=== PATIENT | female | born 1955 | race Caucasian/White ===

== ENCOUNTER 2016-08-05 13:06 | Inpatient (IN) | payer MEDICARE, OTHER ==
[2016-08-05 13:49] LABS: ABSOLUTE LYMPHOCYTES (AUTO) 0.8 10^3/uL (0.5-4.7); ABSOLUTE NEUT (AUTO) 7.8 10^3/uL (1.7-8.2); BASOPHILS % (AUTO) 0.4 % (0-2); HEMATOCRIT 36.7 % (36.0-47.0); HEMOGLOBIN 12.2 g/dL (12.0-15.5); HGB HCT DIFFERENCE -0.1; LYMPHOCYTES % (AUTO) 8.3 % (13-45); MEAN CORPUSCULAR HEMOGLOBIN 30.5 pg (27.0-33.4); MEAN CORPUSCULAR HGB CONC 33.3 g/dL (32.0-36.0); MEAN CORPUSCULAR VOLUME 92 fl (80-97); MONOCYTES % (AUTO) 10.4 % (3-13); RED BLOOD COUNT 4.01 10^6/uL (3.72-5.28); RED CELL DISTRIBUTION WIDTH 13.4 % (11.5-14.0); SEGMENTED NEUTROPHILS % (AUTO) 80.9 % (42-78); WHITE BLOOD COUNT 9.7 10^3/uL (4.0-10.5)
[2016-08-05] MEDS ORDERED: NORMAL SALINE 1000 ML 1,000 ML IV ONE ×3 (13:52→15:52)
[2016-08-05 14:09] LABS: BLOOD UREA NITROGEN 64 mg/dL (7-20); CALCIUM 8.3 mg/dL (8.4-10.2); CARBON DIOXIDE 12 mmol/L (22-30); CHLORIDE 99 mmol/L (98-107); CREATINE KINASE 69 U/L (30-135); CREATININE RESULT 7.62 mg/dL (0.52-1.25); GLUCOSE 165 mg/dL (75-110); POTASSIUM 4.7 mmol/L (3.6-5.0); SODIUM 134.2 mmol/L (137-145)
[2016-08-05 14:13] LABS: ANION GAP 23 (5-19)
--- NOTE | 2016-08-05 14:35 | ER Document Report ---
ED Flu Like - General Chief Complaint: Hypotension Stated Complaint: LOW BLOOD PRESSURE Notes: The patient is a 60-year-old female, current smoker, DM, HTN, CAD, presents with 1 week of subjective fevers, chills and feeling generalized weakness. She has not been drinking or eating much over the past few days. She went to the urgent care center and was diagnosed with influenza A and B. Her blood pressure was 60/20 and she was sent to the emergency room for further evaluation treatment. EMS gave her 1 L fluid NS and her blood pressure improved to 80/50. She is also having decreased urination. She denies nausea, vomiting, chest pain, shortness of breath, leg swelling, hemoptysis, back pain, abdominal pain, dysuria or flank pain. TRAVEL OUTSIDE OF THE [place] IN LAST 30 DAYS: No - Related Data Allergies/Adverse Reactions: No Known Allergies Allergy (Verified 09/16/15 11:39) Past Medical History - General Information source: Patient - Social History Smoking Status: Current Every Day Smoker Chew tobacco use (# tins/day): Yes - 1ppd Frequency of alcohol use: None Drug Abuse: None Family History: Reviewed & Not Pertinent Patient has suicidal ideation: No Patient has homicidal ideation: No - Past Medical History Cardiac Medical History: Reports: Hx Coronary Artery Disease - HIGH CHOL, Hx Hypercholesterolemia Denies: Hx Heart Attack, Hx Hypertension Pulmonary Medical History: Reports: Hx Pneumonia Denies: Hx Asthma, Hx Bronchitis, Hx COPD Neurological Medical History: Denies: Hx Cerebrovascular Accident, Hx Seizures Endocrine Medical History: Reports: Hx Diabetes Mellitus Type 2 Renal/ Medical History: Denies: Hx Peritoneal Dialysis Musculoskeltal Medical History: Reports Hx Arthritis - BACK PAIN Past Surgical History: Reports: Hx Abdominal Surgery - Colostomy, Hx Colostomy. Denies: Hx Hysterectomy - Immunizations Hx Diphtheria, Pertussis, Tetanus Vaccination: No Review of Systems - Review of Systems Notes: REVIEW OF SYSTEMS: CONSTITUTIONAL: +fevers, +chills EENT: -eye pain, -difficulty swallowing, -nasal congestion CARDIOVASCULAR: -chest pain, -syncope. RESPIRATORY: +cough, -SOB GASTROINTESTINAL: -abdominal pain, -nausea, -vomiting, -diarrhea GENITOURINARY: -dysuria, -hematuria MUSCULOSKELETAL: -back pain, -neck pain SKIN: -rash or skin lesions. HEMATOLOGIC: -easy bruising or bleeding. LYMPHATIC: -swollen, enlarged glands. NEUROLOGICAL: -altered mental status or loss of consciousness, -headache, - neurologic symptoms PSYCHIATRIC: -anxiety, -depression. ALL OTHER SYSTEMS REVIEWED AND NEGATIVE. Physical Exam - Vital signs Vitals: Resp 21 H 08/05/16 13:19 - Notes Notes: PHYSICAL EXAMINATION: GENERAL: Ill-appearing. HEAD: Atraumatic, normocephalic. EYES: Pupils equal round and reactive to light, extraocular movements intact, sclera anicteric, conjunctiva are normal. ENT: nares patent, oropharynx clear without exudates. Moist mucous membranes. NECK: Normal range of motion, supple without lymphadenopathy LUNGS: Breath sounds clear to auscultation bilaterally and equal. No wheezes rales or rhonchi. HEART: Regular rate and rhythm without murmurs ABDOMEN: Soft, nontender, normoactive bowel sounds. No guarding, no rebound. No masses appreciated. EXTREMITIES: Normal range of motion, no pitting or edema. No cyanosis. NEUROLOGICAL: Cranial nerves grossly intact. Normal speech, normal gait. Normal sensory, motor, and reflex exams. PSYCH: Normal mood, normal affect. SKIN: Warm, Dry, normal turgor, no rashes or lesions noted. Course - Re-evaluation Re-evalutation: Patient with BETTY. Baseline creatinine normal and is 7.6 today. Will send urinary lytes. Suspect BETTY from dehydration due to decreased po intake. BP improved to 95/60 after 2.5 L NS. Spoke to Dr. Kumar at 15:10 and he has accepted patient as Inpatient to [facility]. - Vital Signs Vital signs: Temp Pulse Resp BP Pulse Ox 97.9 F 78 17 83/60 L 97 08/05/16 13:42 08/05/16 13:42 08/05/16 14:09 08/05/16 14:01 08/05/16 13:42 - Laboratory Result Diagrams: 08/05/16 13:24 08/05/16 13:24 Laboratory results interpreted by me: 08/05/16 08/05/16 13:24 13:24 Seg Neutrophils % 80.9 H Lymphocytes % 8.3 L Sodium 134.2 L Carbon Dioxide 12 L Anion Gap 23 H BUN 64 H Creatinine 7.62 H Est GFR ( Amer) 7 L Est GFR (Non-Af Amer) 5 L Glucose 165 H Calcium 8.3 L - Diagnostic Test Radiology reviewed: Image reviewed, Reports reviewed Radiology results interpreted by me: CXR: NAD - EKG Interpretation by Me EKG shows normal: Sinus rhythm, [place], Intervals, QRS Complexes, ST-T Waves Critical Care Note - Critical Care Note Total time excluding time spent on procedures (mins): 45 Discharge - Discharge Clinical Impression: BETTY (acute kidney injury), Influenza Hypotension Qualifiers: Hypotension type: unspecified hypotension type Qualified Code(s): I95.9 - Hypotension, unspecified Condition: Serious Disposition: ADMITTED INPATIENT Admitting Provider: Hospitalist - José Unit Admitted: [facility]
[2016-08-05] MEDS ORDERED: ACETAMINOPHEN 325 MG TABLET PO ONE (14:58)
[2016-08-05 15:38] LABS: AMORPHOUS SEDIMENT,URINE TRACE /HPF; APPEARANCE,URINE CLOUDY; BILIRUBIN,URINE NEGATIVE (NEGATIVE); GLUCOSE, URINE NEGATIVE (NEGATIVE); KETONES,URINE NEGATIVE (NEGATIVE); LEUKOCYTE ESTERASE,URINE NEGATIVE (NEGATIVE); NITRITE,URINE NEGATIVE (NEGATIVE); PROTEIN,URINE 100 mg/dL (NEGATIVE); URINE SPECIFIC GRAVITY 1.012; UROBILINOGEN,URINE NEGATIVE mg/dL (<2.0)
[2016-08-05] MEDS ORDERED: DEXTROSE 40% GEL 15 GM TUBE PO PRN ×2 (15:47)
[2016-08-05] MEDS ORDERED: GLUCAGON,HUMAN RECOMB 1 MG INJ IM PRN (15:47)
[2016-08-05] MEDS ORDERED: NORMAL SALINE 1000 ML 1,000 ML IV PRN (15:47)
[2016-08-05] MEDS ORDERED: DEXTROSE 50%-WATER 25 GM/50 ML DISP.SYRIN IV PRN ×2 (15:47)
[2016-08-05] MEDS ORDERED: ONDANSETRON HCL INJ/PF 4 MG/2 ML SDV IV PRN (15:52)
[2016-08-05 15:56] LABS: URINE CREATININE 222.9 mg/dL (15-278)
[2016-08-05] MEDS ORDERED: HYDROMORPHONE HCL INJ/PF 2 MG/ML AMPULE IV PRN (16:00)
--- NOTE | 2016-08-05 16:27 | PDOC H&P ---
History of Present Illness Admission Date/PCP: 08/05/16 15:25 Patient complains of: Generalized weakness, fatigue and pain History of Present Illness: NEVILLE JOY is a 60 year old female presents from home with 1 week history of progressive weakness, muscle aches and pains, joint aches and pains, chills. Got to the point where she could barely get herself out of bed, she made her way into urgent care center where she was screened for and found to be positive for both influenza A and B rapid screen. She was noted to be hypotensive with systolic pressures in the 60s, EMS was called and she was transported to the emergency department. Upon arrival here she remained hypotensive until 2 L of normal saline infused getting her mean arterial pressures greater than 65 again. Further evaluation here demonstrates severe ATN induced acute renal failure with a creatinine of greater than 7 up from a baseline of 0.7. For these reasons we were asked to admit the patient for further evaluation and management. Of note she reports a drop off in a volume of her urine and of her stool in her ostomy bag. She has a history of colon cancer status post resection with diverting ostomy and chemotherapy and is followed by oncology but has been declared cancer free. She refused her influenza vaccine this fall. Past Medical History Cardiac Medical History: Reports: Coronary Artery Disease - HIGH CHOL, Hyperlipidema Denies: Myocardial Infarction, Hypertension Pulmonary Medical History: Reports: Pneumonia Denies: Asthma, Bronchitis, Chronic Obstructive Pulmonary Disease (COPD) Neurological Medical History: Denies: Seizures Endocrine Medical History: Reports: Diabetes Mellitus Type 2 Musculoskeltal Medical History: Reports: Arthritis - BACK PAIN Hematology: Denies: Anemia Past Surgical History Past Surgical History: Reports: Colostomy Denies: Hysterectomy Social History Smoking Status: Current Every Day Smoker Cigarettes Packs Per Day: 1 Frequency of Alcohol Use: None Hx Recreational Drug Use: No Hx Prescription Drug Abuse: No - Advance Directive Resuscitation Status: Full Code Family History Family History: Reviewed & Not Pertinent, DM Parental Family History Reviewed: Yes Children Family History Reviewed: Yes Sibling(s) Family History Reviewed.: Yes Medication/Allergy Allergies/Adverse Reactions: No Known Allergies Allergy (Verified 09/16/15 11:39) Review of Systems Constitutional: PRESENT: as per HPI, chills, fatigue, night sweats, weakness. ABSENT: fever(s), headache(s), weight gain, weight loss Eyes: ABSENT: visual disturbances Ears: ABSENT: hearing changes Cardiovascular: PRESENT: dyspnea on exertion. ABSENT: chest pain, edema, orthropnea, palpitations Respiratory: ABSENT: cough, hemoptysis Gastrointestinal: PRESENT: nausea. ABSENT: abdominal pain, constipation, diarrhea, hematemesis, hematochezia, vomiting Genitourinary: PRESENT: as per HPI. ABSENT: dysuria, hematuria Musculoskeletal: ABSENT: joint swelling Integumentary: ABSENT: rash, wounds Neurological: ABSENT: abnormal gait, abnormal speech, confusion, dizziness, focal weakness, syncope Psychiatric: ABSENT: anxiety, depression Endocrine: ABSENT: cold intolerance, heat intolerance, polydipsia, polyuria Hematologic/Lymphatic: ABSENT: easy bleeding, easy bruising Physical Exam Vital Signs: Temp Pulse Resp BP Pulse Ox 97.9 F 78 17 92/46 L 94 08/05/16 13:42 08/05/16 13:42 08/05/16 16:01 08/05/16 16:01 08/05/16 15:21 PHYSICAL EXAM GENERAL: Mild distress; well developed, well nourished; no obese; alert and oriented to person, place, time, situation HEENT: normocephalic, atraumatic; EOMI, no conjunctival injection, no scleral icterus; oral mucosa very dry with thick, heaped up white plaque coating the tongue, portions of the buccal mucosa and posterior oropharynx,; neck supple, no LAD, normal ROM RESPIRATORY: no accessory muscle use, mild increased WOB, good air entry bilaterally coarse bilateral breath sounds; no wheezes, rales, rhonchi; no inspiratory crackles CARDIO: no JVD; RRR; no systolic murmur; no tachycardia, normal sinus rhythm on the monitor with a heart rate in the 80s VASCULAR: no carotid bruit; no abdominal bruit; no pallor; 2+ radial, DP pulse ; normal capillary refill GI: soft; nondistended; normal bowel sounds; no hepato spleno megaly; no rebound, rigidity, guarding; nontender; ostomy bag in place in the right lower quadrant with thin, purplish liquid and some formed elements : normal external genitalia; rectal deferred NEURO: normal patella reflexes; normal sensation; normal motor function; no dysarthria; tongue protrudes midline; MSK: 5/5 strength; normal ROM hips; ambulatory without assistance; no tenderness EXTREMITIES: no calf tender; no palpable cords in calf; no clubbing, cyanosis , pedal edema PSYCH: normal affect, normal mood SKIN: Cool; dry; no petechiae; no telengectasias; no jaundice; no rash Results Laboratory Results: Labs reviewed, chemistry show a sodium of 134, potassium of 5.7, chloride 99, bicarbonate of 12 with an anion gap of 23, BUN of 64, creatinine 7.6. A baseline of 0.7 on review of the medical record, glucose of 165, calcium of 8.3 ; total CK is 69 and troponin is negative, lactic acid is 1.7; CBC shows WBCs at 9.7, H&H 12 and 36, normal platelets and differential shows elevation of segmented neutrophils. Urinalysis shows cloudy yellow urine with a pH of 5 and specific gravity of 1.012, 100 protein, moderate blood, Hylan casts, negative nitrite and leukocyte esterase, trace amount of bacteria. Impressions: Chest X-Ray 08/05/16 13:30 IMPRESSION: NO ACUTE RADIOGRAPHIC FINDING IN THE CHEST. Status: Image reviewed by va - Chest x-ray shows flattening of hemidiaphragms with hyperexpansion of the lung serrato and chronic stranding within the bilateral lung serrato unchanged when compared to prior chest x-ray. Assessment & Plan - Diagnosis (1) Influenza Is this a current diagnosis for this admission?: YesPlan: This is likely the inciting factor for her laboratory abnormalities and her presentation. Even though her symptoms started several days ago given the severity of the endorgan damage will empirically start Tamiflu at a renal dose. Admit the patient to a monitored bed for continued aggressive IV fluid resuscitation. Supportive care. (2) Hypovolemic shock Is this a current diagnosis for this admission?: YesPlan: Continue aggressive IV fluid resuscitation (3) Hyponatremia Is this a current diagnosis for this admission?: YesPlan: Mild and secondary to the above. Trend (4) High anion gap metabolic acidosis Is this a current diagnosis for this admission?: YesPlan: Likely multifactorial secondary to renal failure, and metformin use, and probable starvation ketosis. Treat as above. 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 (6) COPD (chronic obstructive pulmonary disease) Qualifiers: COPD type: chronic bronchitis Chronic bronchitis type: unspecified Qualified Code(s): J42 - Unspecified chronic bronchitis Is this a current diagnosis for this admission?: YesPlan: No evidence for acute exacerbation at this time. Increased risk for same due to the influenza A and B, also at risk for bacterial bronchitis with gram- negative organisms given the severity of her fixed lung disease. (7) Tobacco dependence Is this a current diagnosis for this admission?: YesPlan: NicoDerm replacement, tobacco cessation counseling. (8) BETTY (acute kidney injury) Is this a current diagnosis for this admission?: YesPlan: Aggressive IV fluid resuscitation, check renal ultrasound to rule out obstruction, most likely an acute tubular necrosis from decreased intravascular volume related to the above - Time Time Spent: Greater than 70 Minutes Anticipated discharge: Home Within: within 72 hours - Inpatient Certification Medical Necessity: Significant Comorbidiites Make Outpatient Treatment Too Risky , Need For IV Fluids, Risk of Complication if Not Cared For in Hospital - Plan Summary Plan Summary: Consult nephrology if her renal function fails to improve with fluid resuscitation. Hold any nephrotoxic medications including the SUHAIL inhibitor she 's been taking from home. Overall prognosis guarded at this time and dependent on response to treatment noted above.
[2016-08-05 16:37] LABS: MAGNESIUM 1.8 mg/dL (1.6-2.3); PHOSPHORUS 10.9 mg/dL (2.5-4.5)
[2016-08-05] MEDS: OXYCODONE HCL IR 5 MG TABLET PO PRN ×2 (17:33→23:05)
[2016-08-05] MEDS: NYSTATIN/DEXAMETH/DIPHEN SUSP 120 ML PO SCH ×2 (17:34→23:05)
[2016-08-05] MEDS ORDERED: FAMOTIDINE INJ/PF 20 MG/2 ML SDV IV ONE (18:00)
[2016-08-05 18:23] LABS: ADD HIVPANEL? NO; HIV (1 AND 2) ANTIBODY NEGATIVE (NEGATIVE)
[2016-08-05] MEDS ORDERED: INFLUENZA ADLT QUAD (36MOS+) 2016-17 VAC 0.5 ML SYR IM PRN (18:45)
--- NOTE | 2016-08-05 19:32 | EKG REPORT ---
SEVERITY:- BORDERLINE ECG - SINUS RHYTHM RIGHT ATRIAL ABNORMALITY : Confirmed by: Dayton Younger MD 05-Aug-2016 19:32:06
[2016-08-05] MEDS ORDERED: FAMOTIDINE INJ/PF 20 MG/2 ML SDV IV SCH (22:00)
[2016-08-05 22:13] LABS: ANION GAP 13 (5-19); BLOOD UREA NITROGEN 56 mg/dL (7-20); CALCIUM 7.3 mg/dL (8.4-10.2); CARBON DIOXIDE 13 mmol/L (22-30); CHLORIDE 111 mmol/L (98-107); CREATININE RESULT 4.57 mg/dL (0.52-1.25); GLUCOSE 113 mg/dL (75-110); POTASSIUM 4.9 mmol/L (3.6-5.0); SODIUM 137.3 mmol/L (137-145)
[2016-08-05] MEDS: HEPARIN SOD (PORCINE) 5,000 UNIT/ML 1 ML SYRINGE SUBCUT SCH (23:11)
[2016-08-06 02:58] LABS: ANION GAP 10 (5-19); BLOOD UREA NITROGEN 55 mg/dL (7-20); CALCIUM 7.2 mg/dL (8.4-10.2); CARBON DIOXIDE 12 mmol/L (22-30); CHLORIDE 117 mmol/L (98-107); CREATININE RESULT 3.67 mg/dL (0.52-1.25); GLUCOSE 105 mg/dL (75-110); POTASSIUM 4.8 mmol/L (3.6-5.0); SODIUM 139.1 mmol/L (137-145)
[2016-08-06] MEDS: HEPARIN SOD (PORCINE) 5,000 UNIT/ML 1 ML SYRINGE SUBCUT SCH ×3 (06:38→22:33)
[2016-08-06 07:10] LABS: ABSOLUTE LYMPHOCYTES (AUTO) 0.9 10^3/uL (0.5-4.7); ABSOLUTE MONOCYTES (AUTO) 0.8 10^3/uL (0.1-1.4); ABSOLUTE NEUT (AUTO) 6.9 10^3/uL (1.7-8.2); BASOPHILS % (AUTO) 0.4 % (0-2); HEMATOCRIT 29.2 % (36.0-47.0); HGB HCT DIFFERENCE 0.5; MEAN CORPUSCULAR HEMOGLOBIN 30.7 pg (27.0-33.4); MEAN CORPUSCULAR HGB CONC 33.8 g/dL (32.0-36.0); MEAN CORPUSCULAR VOLUME 91 fl (80-97); MONOCYTES % (AUTO) 9.7 % (3-13); RED BLOOD COUNT 3.21 10^6/uL (3.72-5.28); RED CELL DISTRIBUTION WIDTH 13.3 % (11.5-14.0); SEGMENTED NEUTROPHILS % (AUTO) 79.9 % (42-78); WHITE BLOOD COUNT 8.6 10^3/uL (4.0-10.5)
[2016-08-06 07:22] LABS: HEMOGLOBIN 9.9 g/dL (12.0-15.5)
[2016-08-06 07:28] LABS: ANION GAP 9 (5-19); BLOOD UREA NITROGEN 53 mg/dL (7-20); CALCIUM 7.5 mg/dL (8.4-10.2); CARBON DIOXIDE 14 mmol/L (22-30); CHLORIDE 116 mmol/L (98-107); CREATININE RESULT 3.21 mg/dL (0.52-1.25); GLUCOSE 91 mg/dL (75-110); MAGNESIUM 1.5 mg/dL (1.6-2.3); POTASSIUM 4.6 mmol/L (3.6-5.0); SODIUM 138.6 mmol/L (137-145)
[2016-08-06 07:37] LABS: PHOSPHORUS 5.1 mg/dL (2.5-4.5)
[2016-08-06] MEDS: IPRATROPIUM/ALBUTEROL 0.5-2.5 MG/3 ML AMPUL NEB PRN ×2 (09:45→17:07)
[2016-08-06] MEDS: OXYCODONE HCL IR 5 MG TABLET PO PRN ×3 (10:00→22:33)
[2016-08-06] MEDS: NYSTATIN/DEXAMETH/DIPHEN SUSP 120 ML PO SCH ×4 (10:46→22:33)
[2016-08-06] MEDS: FAMOTIDINE INJ/PF 20 MG/2 ML SDV IV SCH (10:47)
[2016-08-06] MEDS: NICOTINE 21 MG/24 HR PATCH.TD24 TD SCH (10:47)
[2016-08-06] MEDS: OSELTAMIVIR PHOSPHATE 75 MG CAPSULE PO SCH (10:47)
[2016-08-06] MEDS: INSULIN LISPRO 100 UNIT/ML 3 ML VIAL SUBCUT PRN (12:18)
--- NOTE | 2016-08-06 15:12 | PDOC PROGRESS REPORT ---
Subjective Progress Note for:: 08/06/16 Subjective:: Reason for visit: Follow-up influenza and renal failure Hospital course: NEVILLE JOY is a 60 year old female presents from home with 1 week history of progressive weakness, muscle aches and pains, joint aches and pains, chills. Got to the point where she could barely get herself out of bed, she made her way into urgent care center where she was screened for and found to be positive for both influenza A and B rapid screen. She was noted to be hypotensive with systolic pressures in the 60s, EMS was called and she was transported to the emergency department. Upon arrival here she remained hypotensive until 2 L of normal saline infused getting her mean arterial pressures greater than 65 again. Further evaluation here demonstrates severe ATN induced acute renal failure with a creatinine of greater than 7 up from a baseline of 0.7. For these reasons we were asked to admit the patient for further evaluation and management. Of note she reports a drop off in a volume of her urine and of her stool in her ostomy bag. She has a history of colon cancer status post resection with diverting ostomy and chemotherapy and is followed by oncology but has been declared cancer free. She refused her influenza vaccine this fall. She was admitted and given aggressive IV fluid resuscitation with good improvement in her renal function and continued good urine output. In general she feels better than when she was admitted. She has developed some respiratory distress now, with productive cough. Subjective: She denies chest pain, fevers, chills, nausea, vomiting, abdominal pain, diarrhea, constipation, orthopnea, PND. ROS: per HPI plus a total of 10 systems reviewed, pertinent positives and negatives noted above, remaining systems negative. Physical Exam Vital Signs: Temp Pulse Resp BP Pulse Ox 97.9 F 74 18 136/64 H 96 08/06/16 11:39 08/06/16 11:39 08/06/16 11:39 08/06/16 11:39 08/06/16 11:39 Intake & Output 08/05/16 08/06/16 08/07/16 06:59 06:59 06:59 Intake Total 5529 Output Total 1450 Balance 4079 Weight 63 kg PHYSICAL EXAM GENERAL: Mild distress; well developed, well nourished; no obese; alert and oriented to person, place, time, situation HEENT: normocephalic, atraumatic; EOMI, no conjunctival injection, no scleral icterus; oral mucosa very dry with thick, heaped up white plaque coating the tongue, portions of the buccal mucosa and posterior oropharynx,; RESPIRATORY: no accessory muscle use, mild increased WOB, good air entry but worsened bilaterally coarse bilateral breath sounds; no wheezes, rales, rhonchi; no inspiratory crackles CARDIO: no JVD; RRR; no systolic murmur; no tachycardia, VASCULAR: no carotid bruit; no abdominal bruit; no pallor; 2+ radial, DP pulse ; normal capillary refill GI: soft; nondistended; normal bowel sounds; no hepato spleno megaly; no rebound, rigidity, guarding; nontender; ostomy bag in place in the right lower quadrant with thin, purplish liquid and some formed elements NEURO: normal patella reflexes; normal sensation; normal motor function; no dysarthria; tongue protrudes midline; MSK: 5/5 strength; normal ROM hips; ambulatory without assistance; no tenderness EXTREMITIES: no calf tender; no palpable cords in calf; no clubbing, cyanosis , pedal edema PSYCH: normal affect, normal mood SKIN: Cool; dry; no petechiae; no telengectasias; no jaundice; no rash Results Laboratory Results: 08/06/16 06:43 08/06/16 06:43 08/05/16 08/06/16 08/06/16 21:40 02:35 06:43 WBC 8.6 RBC 3.21 L Hgb 9.9 L D Hct 29.2 L MCV 91 MCH 30.7 MCHC 33.8 RDW 13.3 Plt Count 178 Seg Neutrophils % 79.9 H Lymphocytes % 10.0 L Monocytes % 9.7 Eosinophils % 0.0 Basophils % 0.4 Absolute Neutrophils 6.9 Absolute Lymphocytes 0.9 Absolute Monocytes 0.8 Absolute Eosinophils 0.0 Absolute Basophils 0.0 Sodium 137.3 139.1 Potassium 4.9 4.8 Chloride 111 H 117 H Carbon Dioxide 13 L 12 L Anion Gap 13 10 BUN 56 H 55 H Creatinine 4.57 H 3.67 H Est GFR ( Amer) 12 L 15 L Est GFR (Non-Af Amer) 10 L 13 L Glucose 113 H 105 Calcium 7.3 L 7.2 L Phosphorus Magnesium 08/06/16 06:43 WBC RBC Hgb Hct MCV MCH MCHC RDW Plt Count Seg Neutrophils % Lymphocytes % Monocytes % Eosinophils % Basophils % Absolute Neutrophils Absolute Lymphocytes Absolute Monocytes Absolute Eosinophils Absolute Basophils Sodium 138.6 Potassium 4.6 Chloride 116 H Carbon Dioxide 14 L Anion Gap 9 BUN 53 H Creatinine 3.21 H Est GFR ( Amer) 18 L Est GFR (Non-Af Amer) 15 L Glucose 91 Calcium 7.5 L Phosphorus 5.1 H D Magnesium 1.5 L 08/06/16 10:10 NT-Pro-B Natriuret Pep 6050 H Labs reviewed, serum creatinine trending down Impressions: Renal Ultrasound 08/05/16 00:00 IMPRESSION: NORMAL RENAL AND BLADDER ULTRASOUND. Chest X-Ray 08/06/16 06:00 IMPRESSION: Upper lobe airspace disease. In the appropriate clinical setting this is consistent with pneumonia. Status: Image reviewed by nd - Chest x-ray reviewed shows bilateral pulmonary edema, cardio megaly Assessment & Plan - Diagnosis (1) Influenza Is this a current diagnosis for this admission?: YesPlan: This is likely the inciting factor for her laboratory abnormalities and her presentation. Even though her symptoms started several days ago given the severity of the endorgan damage will empirically start Tamiflu at a renal dose. (2) Hypovolemic shock Is this a current diagnosis for this admission?: YesPlan: Stop IV fluids due to developing pulmonary edema (3) Hyponatremia Is this a current diagnosis for this admission?: YesPlan: Mild and secondary to the above. Resolved (4) High anion gap metabolic acidosis Is this a current diagnosis for this admission?: YesPlan: Improved. Likely multifactorial secondary to renal failure, and metformin use, and probable starvation ketosis. Treat as above. 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 (6) COPD (chronic obstructive pulmonary disease) Qualifiers: COPD type: chronic bronchitis Chronic bronchitis type: unspecified Qualified Code(s): J42 - Unspecified chronic bronchitis Is this a current diagnosis for this admission?: YesPlan: Still No evidence for acute exacerbation at this time. Increased risk for same due to the influenza A and B, also at risk for bacterial bronchitis with gram- negative organisms given the severity of her fixed lung disease. (7) Tobacco dependence Is this a current diagnosis for this admission?: YesPlan: NicoDerm replacement, tobacco cessation counseling. (8) BETTY (acute kidney injury) Is this a current diagnosis for this admission?: YesPlan: Aggressive IV fluid resuscitation has improved her renal function but now bit fluid overloaded, renal ultrasound ruled out obstruction, so most likely an acute tubular necrosis from decreased intravascular volume related to the above (9) Elevated brain natriuretic peptide (BNP) level Is this a current diagnosis for this admission?: YesPlan: Hold IV fluids, check echocardiogram in the morning, trend BNP. - Time Time Spent with patient: 25-34 minutes
[2016-08-06] MEDS: ACETAMINOPHEN 325 MG TABLET PO PRN (16:23)
[2016-08-07] MEDS: ACETAMINOPHEN 325 MG TABLET PO PRN (02:38)
[2016-08-07] MEDS: IPRATROPIUM/ALBUTEROL 0.5-2.5 MG/3 ML AMPUL NEB PRN (03:03)
[2016-08-07 06:11] LABS: ABSOLUTE LYMPHOCYTES (AUTO) 0.8 10^3/uL (0.5-4.7); ABSOLUTE MONOCYTES (AUTO) 0.7 10^3/uL (0.1-1.4); BASOPHILS % (AUTO) 0.3 % (0-2); EOSINOPHILS % (AUTO) 0.1 % (0-6); HEMATOCRIT 27.4 % (36.0-47.0); HEMOGLOBIN 9.4 g/dL (12.0-15.5); HGB HCT DIFFERENCE 0.8; LYMPHOCYTES % (AUTO) 9.8 % (13-45); MEAN CORPUSCULAR HEMOGLOBIN 30.7 pg (27.0-33.4); MEAN CORPUSCULAR HGB CONC 34.2 g/dL (32.0-36.0); MEAN CORPUSCULAR VOLUME 90 fl (80-97); MONOCYTES % (AUTO) 8.3 % (3-13); RED BLOOD COUNT 3.06 10^6/uL (3.72-5.28); RED CELL DISTRIBUTION WIDTH 13.5 % (11.5-14.0); SEGMENTED NEUTROPHILS % (AUTO) 81.5 % (42-78); WHITE BLOOD COUNT 8.6 10^3/uL (4.0-10.5)
[2016-08-07] MEDS: OXYCODONE HCL IR 5 MG TABLET PO PRN ×3 (06:25→21:29)
[2016-08-07] MEDS: HEPARIN SOD (PORCINE) 5,000 UNIT/ML 1 ML SYRINGE SUBCUT SCH ×3 (06:25→21:28)
[2016-08-07 06:34] LABS: ANION GAP 11 (5-19); BLOOD UREA NITROGEN 42 mg/dL (7-20); CARBON DIOXIDE 14 mmol/L (22-30); CHLORIDE 112 mmol/L (98-107); CREATININE RESULT 2.14 mg/dL (0.52-1.25); GLUCOSE 130 mg/dL (75-110); POTASSIUM 4.3 mmol/L (3.6-5.0)
[2016-08-07] MEDS: NICOTINE 21 MG/24 HR PATCH.TD24 TD SCH (09:07)
[2016-08-07] MEDS: FAMOTIDINE INJ/PF 20 MG/2 ML SDV IV SCH (09:07)
[2016-08-07] MEDS: NYSTATIN/DEXAMETH/DIPHEN SUSP 120 ML PO SCH ×4 (09:07→21:29)
[2016-08-07] MEDS: OSELTAMIVIR PHOSPHATE 75 MG CAPSULE PO SCH (09:08)
[2016-08-07] MEDS ORDERED: FUROSEMIDE INJ/PF 20 MG/2 ML SDV IV ONE (10:15)
--- NOTE | 2016-08-07 13:52 | XCELERA REPORT ---
[address] [address] Transthoracic Echocardiogram Report Name: NEVILLE JOY Age: 60 yrs Gender: Female : 1955 Patient Status: Inpatient Patient Location: 3S\S\330\S\A Study Date: 08/07/2016 09:46 AM Height: 63 in Weight: 138 lb BSA: 1.7 m2 Procedure: A complete two-dimensional transthoracic echocardiogram was performed (2D, M-mode, spectral and color flow Doppler). The study was technically difficult with many images being suboptimal in quality. Reason For Study: elevated BNP, dyspnea Ordering Physician: BAY SMITH Performed By: Ann Marie Eng Interpretation Summary The study was technically difficult with many images being suboptimal in quality. The left ventricular ejection fraction is normal. There is normal left ventricular wall thickness. The left ventricle is grossly normal size. LV diastolic function could not be adequately assessed. Not all wall segments were well visualized. The right ventricle is normal in size, thickness and function The right ventricular systolic function is normal. The right atrium is normal in size The left atrial size is normal. There is no mitral valve stenosis. There is a moderate amount of mitral regurgitation (3 out of 4 ) There is no aortic valve stenosis No aortic regurgitation is present. There is a trace or physiologic amount of tricuspid regurgitation Tricuspid regurgitation jet envelope not well defined to measure RV systolic pressure accurately. There is no pericardial effusion. MMode/2D Measurements \T\ Calculations RVDd: 2.0 cm LVIDd: 4.7 cm FS: 35.6 % MV Diam: IVSd: 0.66 cm LVIDs: 3.0 cm EDV(Teich): 2.8 cm LVPWd: 0.70 cm 103.5 ml ESV(Teich): 36.2 ml EF(Teich): 65.0 % Ao root diam: LVOT diam: 2.2 cm LA A2Cs: 22.4 cm2LA A4Cs: 2.9 cm LVOT area: 3.8 cm2 17.9 cm2 Ao root area: 6.6 cm2 LA dimension: 3.1 cm LA length: 5.6 cm LA Vol Index (BP): LA Volume: 61.1 ml 37.0 ml/m2 Doppler Measurements \T\ Calculations MV E max patrick: MV area (1 diam): MV P1/2t max patrick: Ao V2 max: 127.3 cm/sec 6.4 cm2 126.9 cm/sec 170.6 cm/sec MV A max patrick: MV Flow area MV P1/2t: 49.9 msec Ao max P.7 cm/sec MVA(P1/2t): 4.4 cm2 11.6 mmHg MV E/A: 2.0 (1diam): 6.4 cm2 MV dec slope: BILLIE(V,D): 2.9 cm2 744.7 cm/sec2 MV dec time: 0.18 sec LV V1 max PG: MR max patrick: PA V2 max: TR max patrick: 6.6 mmHg 525.7 cm/sec 86.4 cm/sec 231.7 cm/sec LV V1 max: MR max PG: PA max P.0 mmHg TR max P.3 cm/sec 110.5 mmHg 21.5 mmHg LV dP/dt: 1298 mmHg/s Left Ventricle The left ventricle is grossly normal size. There is normal left ventricular wall thickness. The left ventricular ejection fraction is normal. LV diastolic function could not be adequately assessed. Not all wall segments were well visualized. Right Ventricle The right ventricle is normal in size, thickness and function. There is normal right ventricular wall thickness. The right ventricular systolic function is normal. Atria The right atrium is normal in size. The left atrial size is normal. Interarterial septum not well visualized and not well dopplered. Cannot comment on ASD/PFO presence. Mitral Valve The mitral valve is grossly normal. There is no mitral valve stenosis. There is a moderate amount of mitral regurgitation. Aortic Valve The aortic valve is not well visualized secondary to technical limitations. There is no aortic valve stenosis. No aortic regurgitation is present. Tricuspid Valve The tricuspid valve is not well visualized, but is grossly normal. There is no tricuspid stenosis. There is a trace or physiologic amount of tricuspid regurgitation. Tricuspid regurgitation jet envelope not well defined to measure RV systolic pressure accurately. Pulmonic Valve The pulmonic valve is not well visualized. Great Vessels The aortic root is not well visualized but is probably normal size. The inferior vena cava appeared normal and decreased > 50% with respiration (RAP 5-10 mmHg). Effusions There is no pericardial effusion. : BAY SMITH > Verónica Love
--- NOTE | 2016-08-07 14:35 | PDOC PROGRESS REPORT ---
Subjective Progress Note for:: 08/07/16 Subjective:: Reason for visit: Follow-up influenza and renal failure Hospital course: NEVILLE JOY is a 60 year old female presents from home with 1 week history of progressive weakness, muscle aches and pains, joint aches and pains, chills. Got to the point where she could barely get herself out of bed, she made her way into urgent care center where she was screened for and found to be positive for both influenza A and B rapid screen. She was noted to be hypotensive with systolic pressures in the 60s, EMS was called and she was transported to the emergency department. Upon arrival here she remained hypotensive until 2 L of normal saline infused getting her mean arterial pressures greater than 65 again. Further evaluation here demonstrates severe ATN induced acute renal failure with a creatinine of greater than 7 up from a baseline of 0.7. For these reasons we were asked to admit the patient for further evaluation and management. Of note she reports a drop off in a volume of her urine and of her stool in her ostomy bag. She has a history of colon cancer status post resection with diverting ostomy and chemotherapy and is followed by oncology but has been declared cancer free. She refused her influenza vaccine this fall. She was admitted and given aggressive IV fluid resuscitation with good improvement in her renal function and continued good urine output. In general she feels better than when she was admitted but she developed some respiratory distress, now with productive cough and requiring supplemental O2 to maintain adequate oxygenation. She was noted to have a markedly elevated BNP and developed some pulmonary edema , unclear whether related to inflammation from the influenza or perhaps an element of viral cardiomyopathy or underlying heart failure. Echocardiogram performed and unfortunately was technically difficult with poor quality windows revealing only grossly normal left ventricular ejection fraction, normal LV wall thickness, moderate mitral regurgitation, trace tricuspid regurgitation and right ventricle not well visualized. Subjective: She denies chest pain, fevers, chills, nausea, vomiting, abdominal pain, diarrhea, constipation, orthopnea, PND. She reports exertional dyspnea, relieved with supplemental O2 and rest. ROS: per HPI plus a total of 10 systems reviewed, pertinent positives and negatives noted above, remaining systems negative. Physical Exam Vital Signs: Temp Pulse Resp BP Pulse Ox 98.7 F 85 18 158/64 H 96 08/07/16 12:17 08/07/16 14:17 08/07/16 14:17 08/07/16 12:17 08/07/16 14:17 Intake & Output 08/06/16 08/07/16 08/08/16 06:59 06:59 06:59 Intake Total 3483 6259 523 Output Total 7606 4702 Balance 9314 -2904 051 Weight 63 kg 63 kg PHYSICAL EXAM GENERAL: Mild respiratory distress; well developed, well nourished; no obese; alert and oriented to person, place, time, situation HEENT: normocephalic, atraumatic; EOMI, no conjunctival injection, no scleral icterus; oral mucosa very dry with persistent thick, heaped up white plaque coating the tongue & portions of the buccal mucosa and posterior oropharynx,; RESPIRATORY: no accessory muscle use, mild increased WOB, good air entry but worsened bilaterally coarse bilateral breath sounds, interval development of rales bilaterally; no wheezes, rhonchi CARDIO: no JVD; RRR; no systolic murmur; no tachycardia, VASCULAR: no pallor; 2+ radial, DP pulse; normal capillary refill GI: soft; nondistended; normal bowel sounds; no hepato spleno megaly; no rebound, rigidity, guarding; nontender; ostomy bag in place in the right lower quadrant with thin, dark brown liquid and some formed elements NEURO: normal patella reflexes; normal sensation; normal motor function; no dysarthria; tongue protrudes midline; MSK: 5/5 strength; normal ROM hips; ambulatory without assistance; no tenderness EXTREMITIES: no calf tender; no palpable cords in calf; no clubbing, cyanosis , pedal edema PSYCH: normal affect, normal mood SKIN: Cool; dry; no petechiae; no telengectasias; no jaundice; no rash Results Laboratory Results: 08/07/16 05:48 08/07/16 05:59 08/07/16 08/07/16 05:48 05:59 WBC 8.6 RBC 3.06 L Hgb 9.4 L Hct 27.4 L MCV 90 MCH 30.7 MCHC 34.2 RDW 13.5 Plt Count 165 Seg Neutrophils % 81.5 H Lymphocytes % 9.8 L Monocytes % 8.3 Eosinophils % 0.1 Basophils % 0.3 Absolute Neutrophils 7.0 Absolute Lymphocytes 0.8 Absolute Monocytes 0.7 Absolute Eosinophils 0.0 Absolute Basophils 0.0 Sodium 137.0 Potassium 4.3 Chloride 112 H Carbon Dioxide 14 L Anion Gap 11 BUN 42 H Creatinine 2.14 H Est GFR ( Amer) 28 L Est GFR (Non-Af Amer) 23 L Glucose 130 H Calcium 8.0 L 08/06/16 10:10 NT-Pro-B Natriuret Pep 6050 H Labs are reviewed, persistent diarrhea again metabolic acidosis likely secondary to renal failure continues to improve day by day, markedly elevated BNP, CBC reassuring and largely unchanged Impressions: Renal Ultrasound 08/05/16 00:00 IMPRESSION: NORMAL RENAL AND BLADDER ULTRASOUND. Chest X-Ray 08/06/16 06:00 IMPRESSION: Upper lobe airspace disease. In the appropriate clinical setting this is consistent with pneumonia. Status: Imported from PACS Assessment & Plan - Diagnosis (1) Influenza Is this a current diagnosis for this admission?: YesPlan: This is likely the inciting factor for her laboratory abnormalities and her presentation. Even though her symptoms started several days ago given the severity of the endorgan damage will empirically treat with Tamiflu at a renal dose. (2) Hypovolemic shock Is this a current diagnosis for this admission?: YesPlan: Resolved with aggressive fluid resuscitation however had to Stop IV fluids due to developing pulmonary edema. (3) Hyponatremia Is this a current diagnosis for this admission?: YesPlan: Mild and secondary to the above. Resolved (4) High anion gap metabolic acidosis Is this a current diagnosis for this admission?: YesPlan: Improved. Likely multifactorial secondary to renal failure, and metformin use, and probable starvation ketosis. Treat as above. (5) Diabetes Qualifiers: Diabetes mellitus type: type 2 Diabetes mellitus complication status: with unspecified complications Diabetes mellitus shelter insulin use: without terminologist use Qualified Code(s): E11.8 - Type 2 diabetes mellitus with unspecified complications; Z79.4 - terminologist (current) use of insulin Is this a current diagnosis for this admission?: YesPlan: hemoglobin A1c 6.6, cover with sliding scale insulin. (6) COPD (chronic obstructive pulmonary disease) Qualifiers: COPD type: chronic bronchitis Chronic bronchitis type: unspecified Qualified Code(s): J42 - Unspecified chronic bronchitis Is this a current diagnosis for this admission?: YesPlan: Still No evidence for acute exacerbation at this time. Increased risk for same due to the influenza A and B, also at risk for bacterial bronchitis with gram- negative organisms given the severity of her fixed lung disease. (7) Tobacco dependence Is this a current diagnosis for this admission?: YesPlan: NicoDerm replacement, tobacco cessation counseling. (8) BETTY (acute kidney injury) Is this a current diagnosis for this admission?: YesPlan: Aggressive IV fluid resuscitation has improved her renal function but now remains a bit fluid overloaded; renal ultrasound ruled out obstruction, so most likely an acute tubular necrosis from decreased intravascular volume and resultant hypotension related to the above (9) Elevated brain natriuretic peptide (BNP) level Is this a current diagnosis for this admission?: YesPlan: Unclear etiology but likely related to the acute renal failure. - Time Time Spent with patient: 25-34 minutes Anticipated discharge: Home Within: within 48 hours - Plan Summary Plan Summary: Anticipated discharge home the next 24-48 hours if we can achieve euvolemic, and improved renal function. We'll give a single dose of IV Lasix today in an effort to alleviate some of her breathlessness from the pulmonary edema.
[2016-08-07] MEDS: INSULIN LISPRO 100 UNIT/ML 3 ML VIAL SUBCUT PRN (21:28)
[2016-08-08] MEDS: HEPARIN SOD (PORCINE) 5,000 UNIT/ML 1 ML SYRINGE SUBCUT SCH ×3 (06:18→21:11)
[2016-08-08] MEDS: OXYCODONE HCL IR 5 MG TABLET PO PRN ×2 (06:18→21:31)
[2016-08-08 06:40] LABS: ABSOLUTE BASOPHILS # (AUTO) 0.1 10^3/uL (0.0-0.2); ABSOLUTE LYMPHOCYTES (AUTO) 1.3 10^3/uL (0.5-4.7); ABSOLUTE MONOCYTES (AUTO) 1.3 10^3/uL (0.1-1.4); ABSOLUTE NEUT (AUTO) 8.1 10^3/uL (1.7-8.2); BASOPHILS % (AUTO) 0.5 % (0-2); EOSINOPHILS % (AUTO) 0.1 % (0-6); HEMATOCRIT 31.7 % (36.0-47.0); HEMOGLOBIN 10.8 g/dL (12.0-15.5); HGB HCT DIFFERENCE 0.7; LYMPHOCYTES % (AUTO) 12.2 % (13-45); MEAN CORPUSCULAR HEMOGLOBIN 30.7 pg (27.0-33.4); MEAN CORPUSCULAR VOLUME 90 fl (80-97); MONOCYTES % (AUTO) 12.3 % (3-13); RED BLOOD COUNT 3.52 10^6/uL (3.72-5.28); RED CELL DISTRIBUTION WIDTH 13.4 % (11.5-14.0); SEGMENTED NEUTROPHILS % (AUTO) 74.9 % (42-78); WHITE BLOOD COUNT 10.8 10^3/uL (4.0-10.5)
[2016-08-08 06:50] LABS: ANION GAP 14 (5-19); BLOOD UREA NITROGEN 41 mg/dL (7-20); CALCIUM 8.8 mg/dL (8.4-10.2); CARBON DIOXIDE 17 mmol/L (22-30); CHLORIDE 108 mmol/L (98-107); CREATININE RESULT 2.17 mg/dL (0.52-1.25); GLUCOSE 114 mg/dL (75-110); POTASSIUM 4.7 mmol/L (3.6-5.0); SODIUM 139.3 mmol/L (137-145)
[2016-08-08] MEDS: NICOTINE 21 MG/24 HR PATCH.TD24 TD SCH (10:30)
[2016-08-08] MEDS: FAMOTIDINE INJ/PF 20 MG/2 ML SDV IV SCH (10:54)
[2016-08-08] MEDS: OSELTAMIVIR PHOSPHATE 75 MG CAPSULE PO SCH (10:54)
[2016-08-08] MEDS: NYSTATIN/DEXAMETH/DIPHEN SUSP 120 ML PO SCH ×4 (10:55→21:11)
[2016-08-08] MEDS ORDERED: LEVOFLOXACIN 500 MG TABLET PO SCH (12:00)
[2016-08-08] MEDS ORDERED: NORMAL SALINE 1000 ML 1,000 ML IV PRN (14:36)
--- NOTE | 2016-08-08 14:47 | PDOC PROGRESS REPORT ---
Subjective Progress Note for:: 08/08/16 Subjective:: Patient has no complaints no CP, minimal SOB no abdominal pain or fever Physical Exam Vital Signs: Temp Pulse Resp BP Pulse Ox 97.9 F 80 16 110/58 L 99 08/08/16 11:08 08/08/16 14:00 08/08/16 11:08 08/08/16 11:08 08/08/16 11:08 Intake & Output 08/07/16 08/08/16 08/09/16 00:59 00:59 00:59 Intake Total 2979 1212 250 Output Total 2450 1051 500 Balance 529 161 -250 Weight 63 kg 63 kg 63.1 kg General appearance: PRESENT: no acute distress, thin Head exam: PRESENT: atraumatic, normocephalic Eye exam: PRESENT: conjunctiva pink, EOMI, PERRLA. ABSENT: scleral icterus Neck exam: ABSENT: carotid bruit, JVD, lymphadenopathy, thyromegaly Respiratory exam: PRESENT: decreased breath sounds. ABSENT: rales, rhonchi, wheezes Cardiovascular exam: PRESENT: RRR. ABSENT: diastolic murmur, rubs, systolic murmur Pulses: PRESENT: normal dorsalis pedis pul GI/Abdominal exam: PRESENT: normal bowel sounds, soft. ABSENT: distended, guarding, mass, organolmegaly, rebound, tenderness Extremities exam: PRESENT: full ROM. ABSENT: calf tenderness, clubbing, pedal edema Neurological exam: PRESENT: alert, awake, oriented to person, oriented to place , oriented to time, oriented to situation, CN II-XII grossly intact. ABSENT: motor sensory deficit Results Laboratory Results: 08/08/16 06:12 08/08/16 06:12 08/08/16 08/08/16 06:12 06:12 WBC 10.8 H RBC 3.52 L Hgb 10.8 L Hct 31.7 L MCV 90 MCH 30.7 MCHC 34.0 RDW 13.4 Plt Count 175 Seg Neutrophils % 74.9 Lymphocytes % 12.2 L Monocytes % 12.3 Eosinophils % 0.1 Basophils % 0.5 Absolute Neutrophils 8.1 Absolute Lymphocytes 1.3 Absolute Monocytes 1.3 Absolute Eosinophils 0.0 Absolute Basophils 0.1 Sodium 139.3 Potassium 4.7 Chloride 108 H Carbon Dioxide 17 L Anion Gap 14 BUN 41 H Creatinine 2.17 H Est GFR ( Amer) 28 L Est GFR (Non-Af Amer) 23 L Glucose 114 H Calcium 8.8 08/06/16 08/08/16 10:10 06:12 NT-Pro-B Natriuret Pep 6050 H 3910 H Impressions: Renal Ultrasound 08/05/16 00:00 IMPRESSION: NORMAL RENAL AND BLADDER ULTRASOUND. Chest X-Ray 08/06/16 06:00 IMPRESSION: Upper lobe airspace disease. In the appropriate clinical setting this is consistent with pneumonia. Assessment & Plan - Diagnosis (1) Influenza Is this a current diagnosis for this admission?: YesPlan: continue tamiflu as ordered (2) Pneumonia Qualifiers: Pneumonia type: due to unspecified organism Lung location: upper lobe of lung Is this a current diagnosis for this admission?: YesPlan: levaquin po (3) EBTTY (acute kidney injury) Is this a current diagnosis for this admission?: YesPlan: improved but creatinine still 2.1 will hydrate cautiously repeat BMP in am (4) COPD (chronic obstructive pulmonary disease) Qualifiers: COPD type: chronic bronchitis Chronic bronchitis type: unspecified Qualified Code(s): J42 - Unspecified chronic bronchitis Is this a current diagnosis for this admission?: YesPlan: continue present management - stable (5) Tobacco dependence Is this a current diagnosis for this admission?: Yes - Time Time Spent with patient: 25-34 minutes - discharge in 24- 48 H PT evaluation in am
[2016-08-08] MEDS: INSULIN LISPRO 100 UNIT/ML 3 ML VIAL SUBCUT PRN (15:13)
[2016-08-09] MEDS: OXYCODONE HCL IR 5 MG TABLET PO PRN (04:59)
[2016-08-09] MEDS: HEPARIN SOD (PORCINE) 5,000 UNIT/ML 1 ML SYRINGE SUBCUT SCH (05:00)
[2016-08-09] MEDS: NICOTINE 21 MG/24 HR PATCH.TD24 TD SCH (09:40)
[2016-08-09] MEDS: FAMOTIDINE INJ/PF 20 MG/2 ML SDV IV SCH (09:40)
[2016-08-09] MEDS: OSELTAMIVIR PHOSPHATE 75 MG CAPSULE PO SCH (09:40)
[2016-08-09] MEDS: NYSTATIN/DEXAMETH/DIPHEN SUSP 120 ML PO SCH (09:40)
[2016-08-09 11:18] VITALS: BP 111/43
--- NOTE | 2016-08-09 16:05 | PDOC DISCHARGE SUMMARY ---
General - Admit/Disc Date/PCP Admission Date/Primary Care Provider: 08/05/16 15:47 [facility] Nephrology referral Dr Salter Discharge Date: 08/09/16 - Discharge Diagnosis (1) Influenza Is this a current diagnosis for this admission?: YesSummary: patient was treated with Tamiflu (2) Pneumonia Is this a current diagnosis for this admission?: YesSummary: bilateral infiltrates upper lobes sputum culture normal dianelys Patient was treated initially with zosyn and vancomycin, and discharged with vantin po (3) BETTY (acute kidney injury) Is this a current diagnosis for this admission?: YesSummary: ARF secondary to dehydration improved 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 NSAIDS , lisinopril and metformin were d/c at discharge 08/05/16 08/08/16 13:24 06:12 BUN 64 H 41 H Creatinine 7.62 H 2.17 H (4) COPD (chronic obstructive pulmonary disease) Is this a current diagnosis for this admission?: YesSummary: COPD exacerbation improved O2 sat 94% on room air at discharge patient to continue nebs and prednisone taper (5) Tobacco dependence Is this a current diagnosis for this admission?: Yes (6) Diabetes Is this a current diagnosis for this admission?: YesSummary: 08/08/16 08/08/16 08/08/16 11:09 15:55 21:45 POC Glucose 164 H 134 H 83 08/09/16 06:51 POC Glucose 106 glucose well controlled without metformin - Additional Information Resuscitation Status: Full Code Discharge Diet: Cardiac Discharge Activity: Activity As Tolerated Home Medications: Baclofen [Baclofen 10 mg Tablet] 1 tab PO BIDP PRN 08/05/16 Cilostazol 1 tab PO QAM 08/05/16 Clopidogrel Bisulfate [Plavix 75 mg Tablet] 1 tab PO DAILY 08/05/16 Oxycodone HCl/Acetaminophen [Percocet 5-325 mg Tablet] 1 tab PO Q5H PRN Amlodipine Besylate [Norvasc 2.5 mg Tablet] 2.5 mg PO DAILY #30 tablet 08/09/16 Levofloxacin [Levaquin 500 mg Tablet] 500 mg PO Q2DAYS@NOON #3 tablet 08/09/16 Nicotine [Nicoderm 21 mg/24 Hr Transderm Patch] 1 each TD DAILY #30 patch.td24 08/09/16 Oseltamivir Phosphate [Tamiflu] 30 mg PO DAILY #2 capsule 08/09/16 History of Present Illness History of Present Illness: NEVILLE JOY is a 60 year old female Hospital Course Hospital Course: see above Physical Exam Vital Signs: Temp Pulse Resp BP Pulse Ox 98.1 F 85 16 111/43 L 95 08/09/16 11:16 08/09/16 11:16 08/09/16 11:16 08/09/16 11:16 08/09/16 11:16 Intake & Output 08/08/16 08/09/16 08/10/16 00:59 00:59 00:59 Intake Total 1212 1857 1150 Output Total 1051 950 325 Balance 161 907 825 Weight 63 kg 63.1 kg 64.3 kg General appearance: PRESENT: no acute distress, thin, other - undernourished Head exam: PRESENT: atraumatic, normocephalic Eye exam: PRESENT: conjunctiva pink, EOMI, PERRLA. ABSENT: scleral icterus Ear exam: PRESENT: normal external ear exam Mouth exam: PRESENT: moist, tongue midline Neck exam: ABSENT: carotid bruit, JVD, lymphadenopathy, thyromegaly Respiratory exam: PRESENT: clear to auscultation yu. ABSENT: rales, rhonchi, wheezes Cardiovascular exam: PRESENT: RRR. ABSENT: diastolic murmur, rubs, systolic murmur Pulses: PRESENT: normal dorsalis pedis pul Vascular exam: PRESENT: normal capillary refill GI/Abdominal exam: PRESENT: normal bowel sounds, soft. ABSENT: distended, guarding, mass, organolmegaly, rebound, tenderness Rectal exam: PRESENT: deferred Extremities exam: PRESENT: full ROM. ABSENT: calf tenderness, clubbing, pedal edema Neurological exam: PRESENT: alert, awake, oriented to person, oriented to place , oriented to time, oriented to situation, CN II-XII grossly intact. ABSENT: motor sensory deficit Psychiatric exam: PRESENT: appropriate affect, normal mood. ABSENT: homicidal ideation, suicidal ideation Skin exam: PRESENT: dry, intact, warm. ABSENT: cyanosis, rash Results Laboratory Results: 08/08/16 06:12 08/08/16 06:12 08/06/16 08/08/16 10:10 06:12 NT-Pro-B Natriuret Pep 6050 H 3910 H Impressions: Renal Ultrasound 08/05/16 00:00 IMPRESSION: NORMAL RENAL AND BLADDER ULTRASOUND. Chest X-Ray 08/06/16 06:00 IMPRESSION: Upper lobe airspace disease. In the appropriate clinical setting this is consistent with pneumonia.
== END 2016-08-09 11:46 | disposition home or self-care (01) | DRG 682 ==
LOC: ER 13:06 → UNDOADMIN 15:25 → EH 15:25 → 3S 17:02 → EH 17:02
PROVIDERS: ADMIT Internal Medicine; ATTEND Internal Medicine
PROC: 3E0F73Z Introduction of Anti-inflammatory into Respiratory Tract, Via Natural or Artificial Opening (ICD-10-PCS; principal; 2016-08-05)
DX: N17.0 Acute kidney failure with tubular necrosis (principal); J18.9 Pneumonia, unspecified organism; E87.2 Acidosis; E87.1 Hypo-osmolality and hyponatremia; J11.1 Influenza due to unidentified influenza virus with other respiratory manifestations; E86.0 Dehydration; J44.9 Chronic obstructive pulmonary disease, unspecified; E11.9 Type 2 diabetes mellitus without complications; I25.10 Atherosclerotic heart disease of native coronary artery without angina pectoris; E78.00 Pure hypercholesterolemia, unspecified; E78.5 Hyperlipidemia, unspecified; I95.9 Hypotension, unspecified; M54.9 Dorsalgia, unspecified; M19.90 Unspecified osteoarthritis, unspecified site; F17.210 Nicotine dependence, cigarettes, uncomplicated; Z93.3 Colostomy status; Z83.3 Family history of diabetes mellitus; Z79.84 Long term (current) use of oral hypoglycemic drugs; Z92.21 Personal history of antineoplastic chemotherapy; Z85.038 Personal history of other malignant neoplasm of large intestine; Z79.899 Other long term (current) drug therapy
CPT/HCPCS: 36415; 71010; 71020; 76770; 80048; 81001; 82550; 82570; 82962; 83036; 83605; 83735; 83880; 84100; 84300; 84484; 85025; 86701; 93005; 93010; 93306; 94640; 99291; J1644; J1815; J1940; J2405; J3490; J7030; J7620; S0028

== ENCOUNTER → 2016-08-15 | Outpatient (CLI) | payer MEDICARE, OTHER ==
[2016-08-15 14:57] LABS: APPEARANCE,URINE SLIGHTLY-CLOUDY; BILIRUBIN,URINE NEGATIVE (NEGATIVE); GLUCOSE, URINE NEGATIVE (NEGATIVE); KETONES,URINE NEGATIVE (NEGATIVE); LEUKOCYTE ESTERASE,URINE NEGATIVE (NEGATIVE); NITRITE,URINE NEGATIVE (NEGATIVE); PROTEIN,URINE 30 mg/dL (NEGATIVE); URINE SPECIFIC GRAVITY 1.019; UROBILINOGEN,URINE NEGATIVE mg/dL (<2.0)
[2016-08-15 15:05] LABS: ANION GAP 16 (5-19); BLOOD UREA NITROGEN 48 mg/dL (7-20); CALCIUM 9.6 mg/dL (8.4-10.2); CARBON DIOXIDE 15 mmol/L (22-30); CHLORIDE 105 mmol/L (98-107); CREATININE RESULT 1.71 mg/dL (0.52-1.25); GLUCOSE 236 mg/dL (75-110); HEMATOCRIT 34.5 % (36.0-47.0); HEMOGLOBIN 11.7 g/dL (12.0-15.5); HGB HCT DIFFERENCE 0.6; MEAN CORPUSCULAR HEMOGLOBIN 30.4 pg (27.0-33.4); MEAN CORPUSCULAR HGB CONC 33.7 g/dL (32.0-36.0); MEAN CORPUSCULAR VOLUME 90 fl (80-97); POTASSIUM 5.1 mmol/L (3.6-5.0); RED BLOOD COUNT 3.83 10^6/uL (3.72-5.28); RED CELL DISTRIBUTION WIDTH 13.2 % (11.5-14.0); SODIUM 135.6 mmol/L (137-145); WHITE BLOOD COUNT 9.2 10^3/uL (4.0-10.5)
== END ==
LOC: OD 12:54
PROVIDERS: ATTEND Emergency Medicine
DX: N17.9 Acute kidney failure, unspecified (principal); E11.9 Type 2 diabetes mellitus without complications
CPT/HCPCS: 36415; 80048; 81001; 85027

== ENCOUNTER → 2016-09-06 | Outpatient (CLI) | payer MEDICARE, OTHER ==
[2016-09-06 08:23] LABS: HEMATOCRIT 34.9 % (36.0-47.0); HEMOGLOBIN 11.7 g/dL (12.0-15.5); HGB HCT DIFFERENCE 0.2; MEAN CORPUSCULAR HEMOGLOBIN 30.7 pg (27.0-33.4); MEAN CORPUSCULAR HGB CONC 33.4 g/dL (32.0-36.0); MEAN CORPUSCULAR VOLUME 92 fl (80-97); RED CELL DISTRIBUTION WIDTH 14.9 % (11.5-14.0); WHITE BLOOD COUNT 6.8 10^3/uL (4.0-10.5)
[2016-09-06 08:29] LABS: APPEARANCE,URINE CLEAR; BILIRUBIN,URINE NEGATIVE (NEGATIVE); GLUCOSE, URINE NEGATIVE (NEGATIVE); KETONES,URINE NEGATIVE (NEGATIVE); LEUKOCYTE ESTERASE,URINE NEGATIVE (NEGATIVE); NITRITE,URINE NEGATIVE (NEGATIVE); PROTEIN,URINE NEGATIVE (NEGATIVE); URINE SPECIFIC GRAVITY 1.014; UROBILINOGEN,URINE NEGATIVE mg/dL (<2.0)
[2016-09-06 08:49] LABS: ANION GAP 7 (5-19); BLOOD UREA NITROGEN 10 mg/dL (7-20); CALCIUM 9.8 mg/dL (8.4-10.2); CARBON DIOXIDE 25 mmol/L (22-30); CHLORIDE 109 mmol/L (98-107); CHOLESTEROL 203.73 mg/dL (0-200); CREATININE RESULT 0.85 mg/dL (0.52-1.25); Direct HDL 46 mg/dL (>40); GLUCOSE 129 mg/dL (75-110); POTASSIUM 4.2 mmol/L (3.6-5.0); SODIUM 140.9 mmol/L (137-145); TRIGLYCERIDES 180 mg/dL (<150)
[2016-09-06 09:00] LABS: DIRECT LDL 115 mg/dL (<100)
[2016-09-07 10:38] LABS: CREATININE URINE 129.3 mg/dL (Not Estab.); MICROALBUMIN URINE 15.6 ug/mL (Not Estab.)
== END ==
LOC: OD 07:26
PROVIDERS: ATTEND Internal Medicine Nephrology
DX: I12.9 Hypertensive chronic kidney disease with stage 1 through stage 4 chronic kidney disease, or unspecified chronic kidney disease (principal); N18.2 Chronic kidney disease, stage 2 (mild); E11.9 Type 2 diabetes mellitus without complications
CPT/HCPCS: 36415; 80048; 80061; 81001; 82043; 82570; 83036; 85027

== ENCOUNTER → 2017-03-28 | Outpatient (CLI) | payer MEDICARE ==
--- NOTE | 2017-03-28 10:26 | RADIOLOGY REPORT (SQ) ---
EXAM DESCRIPTION: ACUTE ABDOMEN SERIES COMPLETED DATE/TIME: 03/28/2017 10:06 am REASON FOR STUDY: NAUSEA/COLON CA C18.9 MALIGNANT NEOPLASM OF COLON, UNSPECIFIED COMPARISON: 2016. Chest films from earlier this year. NUMBER OF VIEWS: Three views. TECHNIQUE: Frontal chest, supine abdomen and upright/decubitus abdomen radiographic images acquired. LIMITATIONS: None. FINDINGS: CHEST: COPD. Hyperinflation with scarring. No acute infiltrate. No suspicious opacities . FREE AIR: None. No abnormal gas collections. BOWEL GAS PATTERN: Nonobstructive pattern. No dilated loops or air fluid levels. Ostomy artifact rig ht lower quadrant. Surgical sutures are seen in the left hemipelvis. CALCIFICATIONS: No suspicious calcifications. HARDWARE: None in the abdomen. SOFT TISSUES: No gross mass or suggestion of organomegaly. BONES: No acute fracture. No worrisome bone lesions. OTHER: No other significant finding. IMPRESSION: NO RADIOGRAPHIC EVIDENCE FOR ACUTE ABDOMINAL DISEASE. TECHNICAL DOCUMENTATION: JOB ID: [id number] [employer]- All Rights Reserved
== END ==
LOC: RAD 09:31
PROVIDERS: ATTEND Family Medicine
DX: C18.9 Malignant neoplasm of colon, unspecified (principal); R11.0 Nausea
CPT/HCPCS: 74022

== ENCOUNTER 2017-03-29 18:00 | Emergency (ER) | payer MEDICARE ==
--- NOTE | 2017-03-29 18:52 | ER Document Report ---
ED Medical Screen (RME) - General Chief Complaint: Shortness Of Breath Stated Complaint: FOOT PAIN Time Seen by Provider: 03/29/17 18:39 Mode of Arrival: Wheelchair Information source: Patient Notes: 61-year-old female presents with 3 separate complaints. Patient notes shortness of breath, right hip pain, as well as low blood pressure patient noted to be hypotensive on arrival I have greeted and performed a rapid initial assessment of this patient. A comprehensive ED assessment and evaluation of the patient, analysis of test results and completion of the medical decision making process will be conducted by additional ED providers. PHYSICAL EXAMINATION: GENERAL: Well-appearing, well-nourished and in no acute distress. HEAD: Atraumatic, normocephalic. EYES: Pupils equal round extraocular movements intact, conjunctiva are normal. ENT: Nares patent NECK: Normal range of motion LUNGS: No respiratory distress Musculoskeletal: limited rom secondary to pain NEUROLOGICAL: Normal speech, normal gait. PSYCH: Normal mood, normal affect. SKIN: Warm, Dry, normal turgor, no rashes or lesions noted. TRAVEL OUTSIDE OF THE [place] IN LAST 30 DAYS: No - Related Data Allergies/Adverse Reactions: No Known Allergies Allergy (Verified 09/16/15 11:39) Past Medical History - Past Medical History Cardiac Medical History: Reports: Hx Coronary Artery Disease - HIGH CHOL, Hx Hypercholesterolemia Denies: Hx Heart Attack, Hx Hypertension Pulmonary Medical History: Reports: Hx Pneumonia Denies: Hx Asthma, Hx Bronchitis, Hx COPD Neurological Medical History: Denies: Hx Cerebrovascular Accident, Hx Seizures Endocrine Medical History: Reports: Hx Diabetes Mellitus Type 2 Renal/ Medical History: Denies: Hx Peritoneal Dialysis Musculoskeltal Medical History: Reports Hx Arthritis - BACK PAIN Past Surgical History: Reports: Hx Abdominal Surgery - Colostomy, Hx Colostomy. Denies: Hx Hysterectomy - Immunizations Hx Diphtheria, Pertussis, Tetanus Vaccination: No Physical Exam - Vital signs Vitals: Temp Pulse Resp BP Pulse Ox 97.7 F 86 16 79/36 L 100 03/29/17 18:24 03/29/17 18:24 03/29/17 18:24 03/29/17 18:24 03/29/17 18:24 Course - Vital Signs Vital signs: Temp Pulse Resp BP Pulse Ox 97.7 F 86 16 79/48 L 100 03/29/17 18:24 03/29/17 18:24 03/29/17 18:24 03/29/17 18:28 03/29/17 18:24
[2017-03-29] MEDS: NORMAL SALINE 1000 ML 1,000 ML IV PRN ×3 (19:07→23:44)
[2017-03-29 19:21] LABS: ABSOLUTE BASOPHILS # (AUTO) 0.1 10^3/uL (0.0-0.2); ABSOLUTE EOSINOPHILS # (AUTO) 0.2 10^3/uL (0.0-0.6); ABSOLUTE LYMPHOCYTES (AUTO) 1.4 10^3/uL (0.5-4.7); ABSOLUTE MONOCYTES (AUTO) 1.1 10^3/uL (0.1-1.4); ABSOLUTE NEUT (AUTO) 5.8 10^3/uL (1.7-8.2); BASOPHILS % (AUTO) 0.8 % (0-2); EOSINOPHILS % (AUTO) 1.8 % (0-6); HEMATOCRIT 37.6 % (36.0-47.0); HEMOGLOBIN 12.5 g/dL (12.0-15.5); HGB HCT DIFFERENCE -0.1; LYMPHOCYTES % (AUTO) 16.3 % (13-45); MEAN CORPUSCULAR HEMOGLOBIN 31.1 pg (27.0-33.4); MEAN CORPUSCULAR HGB CONC 33.3 g/dL (32.0-36.0); MEAN CORPUSCULAR VOLUME 93 fl (80-97); MONOCYTES % (AUTO) 13.4 % (3-13); RED BLOOD COUNT 4.03 10^6/uL (3.72-5.28); RED CELL DISTRIBUTION WIDTH 13.9 % (11.5-14.0); SEGMENTED NEUTROPHILS % (AUTO) 67.7 % (42-78); VENOUS BLOOD BASE EXCESS -17.4 mmol/L; WHITE BLOOD COUNT 8.6 10^3/uL (4.0-10.5)
[2017-03-29 19:32] LABS: VENOUS BLOOD PH 7.12 (7.30-7.42)
[2017-03-29 19:43] LABS: ALANINE AMINOTRANSFERASE 28 U/L (9-52); ALBUMIN 3.9 g/dL (3.5-5.0); ALKALINE PHOSPHATASE 112 U/L (38-126); ANION GAP 14 (5-19); ASPARTATE AMINO TRANSFERASE 12 U/L (14-36); BILIRUBIN,DIRECT 0.2 mg/dL (0.0-0.4); BILIRUBIN,TOTAL 0.2 mg/dL (0.2-1.3); BLOOD UREA NITROGEN 83 mg/dL (7-20); CALCIUM 9.6 mg/dL (8.4-10.2); CHLORIDE 107 mmol/L (98-107); CREATINE KINASE 35 U/L (30-135); CREATININE RESULT 4.18 mg/dL (0.52-1.25); GLUCOSE 123 mg/dL (75-110); POTASSIUM 5.5 mmol/L (3.6-5.0); SODIUM 127.5 mmol/L (137-145); TOTAL PROTEIN 6.6 g/dL (6.3-8.2)
--- NOTE | 2017-03-29 19:43 | RADIOLOGY REPORT (SQ) ---
EXAM DESCRIPTION: CHEST PA/LAT COMPLETED DATE/TIME: 03/29/2017 7:24 pm REASON FOR STUDY: sob COMPARISON: 08/06/2016 EXAM PARAMETERS: NUMBER OF VIEWS: two views TECHNIQUE: Digital Frontal and Lateral radiographic views of the chest acquired. RADIATION DOSE: NA LIMITATIONS: none FINDINGS: LUNGS AND PLEURA: No acute opacities, masses or pneumothorax. No pleural effusion. MEDIASTINUM AND HILAR STRUCTURES: Stable. HEART AND VASCULAR STRUCTURES: Heart normal size. No evidence for failure. BONES: No acute findings. HARDWARE: None in the chest. OTHER: No other significant finding. IMPRESSION: No acute findings. TECHNICAL DOCUMENTATION: JOB ID: [id number] [employer]- All Rights Reserved
[2017-03-29 19:52] LABS: CARBON DIOXIDE 7 mmol/L (22-30)
--- NOTE | 2017-03-29 19:52 | ER Document Report ---
ED General - General Chief Complaint: Shortness Of Breath Stated Complaint: FOOT PAIN Time Seen by Provider: 03/29/17 18:39 Mode of Arrival: Wheelchair Notes: Patient is a 61-year-old female comes emergency department for chief complaint of weakness and shortness of breath, she states that she can barely take a few steps when getting up before she feels "totally wiped out". She denies chest pain, cough, fever. She denies vomiting. She also reports pain in her right lower back area with radiating pain down her right leg. She denies injury. Patient has a history of type 2 diabetes and a colostomy bag, status post colon cancer, she is not on chemotherapy and she has been cleared by oncology. She states she has been trying to eat but has not been able to eat much over the past 2 days. TRAVEL OUTSIDE OF THE [place] IN LAST 30 DAYS: No - Related Data Allergies/Adverse Reactions: No Known Allergies Allergy (Verified 09/16/15 11:39) Home Medications: Current Home Medications Baclofen [Baclofen 10 mg Tablet] 10 mg PO BIDP PRN 03/29/17 [History] Biotin 5,000 mcg PO DAILY 03/29/17 [History] Canagliflozin [Invokana] 300 mg PO DAILY 03/29/17 [History] Carisoprodol [Soma 350 Mg Tablet] 350 mg PO BID 03/29/17 [History] Cilostazol [Pletal 100 Mg Tablet] 100 mg PO DAILY 03/29/17 [History] Clopidogrel Bisulfate [Plavix 75 mg Tablet] 75 mg PO DAILY 03/29/17 [History] Glipizide [Glocotrol 5 Mg Tablet] 2.5 mg PO BID 03/29/17 [History] Lisinopril [Prinivil 5 mg Tablet] 5 mg PO DAILY 03/29/17 [History] Ondansetron HCl [Zofran 4 mg Tablet] 1 tab PO TIDP PRN 03/29/17 [History] Oxycodone HCl/Acetaminophen [Percocet 5-325 mg Tablet] 1 tab PO 5XDP PRN [History] Past Medical History - General Information source: Patient - Social History Smoking Status: Current Every Day Smoker Chew tobacco use (# tins/day): No Frequency of alcohol use: None Drug Abuse: None Lives with: Family Family History: Reviewed & Not Pertinent, DM - Past Medical History Cardiac Medical History: Reports: Hx Coronary Artery Disease - HIGH CHOL, Hx Hypercholesterolemia Denies: Hx Heart Attack, Hx Hypertension Pulmonary Medical History: Reports: Hx Pneumonia Denies: Hx Asthma, Hx Bronchitis, Hx COPD Neurological Medical History: Denies: Hx Cerebrovascular Accident, Hx Seizures Endocrine Medical History: Reports: Hx Diabetes Mellitus Type 2 Renal/ Medical History: Denies: Hx Peritoneal Dialysis Musculoskeltal Medical History: Reports Hx Arthritis - BACK PAIN Past Surgical History: Reports: Hx Abdominal Surgery - Colostomy, Hx Colostomy. Denies: Hx Hysterectomy - Immunizations Hx Diphtheria, Pertussis, Tetanus Vaccination: No Review of Systems - Review of Systems Constitutional: See HPI EENT: No symptoms reported Cardiovascular: See HPI Respiratory: See HPI Gastrointestinal: No symptoms reported Genitourinary: No symptoms reported Female Genitourinary: No symptoms reported Musculoskeletal: No symptoms reported Skin: No symptoms reported Hematologic/Lymphatic: No symptoms reported Neurological/Psychological: No symptoms reported Physical Exam - Vital signs Vitals: Temp Pulse Resp BP Pulse Ox 97.7 F 86 16 79/36 L 100 03/29/17 18:24 03/29/17 18:24 03/29/17 18:24 03/29/17 18:24 03/29/17 18:24 Interpretation: Normal - General General appearance: Appears well In distress: None - patient actually alert and generally well appearing - HEENT Head: Normocephalic, Atraumatic Eyes: Normal Conjunctiva: Normal Extraocular movements intact: Yes Eyelashes: Normal Pupils: PERRL Nasal: Normal Mouth/Lips: Normal Mucous membranes: Dry Pharynx: Normal Neck: Normal - Respiratory Respiratory status: No respiratory distress Chest status: Nontender Breath sounds: Normal. No: Decreased air movement, Wheezing Chest palpation: Normal - Cardiovascular Rhythm: Regular. No: Tachycardia Heart sounds: Normal auscultation, S1 appreciated, S2 appreciated Murmur: No - Abdominal Inspection: Normal, Other Distension: No distension Bowel sounds: Normal Tenderness: Nontender. No: Tender - Colostomy bag present, air and stool in it , no blood, no abnormalities noted, Guarding Organomegaly: No organomegaly - Back Back: Normal, Nontender - Extremities General upper extremity: Normal inspection, Nontender, Normal color, Normal ROM , Normal temperature General lower extremity: Normal inspection, Nontender, Normal color, Normal ROM , Normal temperature, Normal weight bearing. No: Carlin's sign - Neurological Neuro grossly intact: Yes Cognition: Normal Orientation: AAOx4 Anand Coma Scale Eye Opening: Spontaneous Anand Coma Scale Verbal: Oriented Anand Coma Scale Motor: Obeys Commands [place] Coma Scale Total: 15 Speech: Normal Motor strength normal: LUE, RUE, LLE, RLE Sensory: Normal - Psychological Associated symptoms: Normal affect, Normal mood - Skin Skin Temperature: Warm Skin Moisture: Dry Skin Color: Normal Course - Re-evaluation Re-evalutation: Patient is significantly hypotensive, beginning IV fluid resuscitation. She does not have a fever, she is not tachycardic, she is alert and oriented, she is protecting her airway. She is not hypoxic. Chest x-ray and urinalysis are both unremarkable. CBC is unremarkable. Lactic acid is not elevated. Chemistry shows significant metabolic acidosis, somewhat elevated potassium at 5.5, hyponatremia, acute renal failure. Patient does not normally have renal failure, her renal function is usually normal. Venous blood gas shows metabolic acidosis. Source appears to be severe metabolic acidosis from significant output from her ostomy bag, states that she did this 1-2 years ago and they believe the source was also the ostomy bag. No other obvious source of the metabolic acidosis. No evidence of urinary tract obstruction, Barnhart was placed, urine output is being obtained. Patient continues to be hypotensive after 3 L fluid bolus. Discussed with Dr. Astorga. Called and spoke to hospitalist, Dr. Velez, concerned because we do not have nephrology coverage for the patient with metabolic acidosis and acute renal failure. He did evaluate the patient at bedside, recommends a pressor be started, recommends potential transfer to tertiary care center. I discussed this with patient. I also recommended a central line be placed for the pressor and for bicarbonate drip, patient refuses, she did allow me to place additional IV access peripherally but she refused a central line despite discussing potential risk of pressor peripherally. Called and spoke with [facility], patient accepted by Dr. Vale. Patient and verbalized agreement and satisfaction with the plan of transfer. 03/30/17 03:30 EMS is about 15 minutes away, patient reevaluated again at bedside, no current complaints, blood pressure stable, stable for transport. - Vital Signs Vital signs: Temp Pulse Resp BP Pulse Ox 98.6 F 86 14 107/43 L 98 03/30/17 03:52 03/29/17 18:24 03/30/17 03:52 03/30/17 03:52 03/30/17 03:52 - Laboratory Result Diagrams: 03/29/17 19:06 03/30/17 00:03 Laboratory results interpreted by me: 03/29/17 03/29/17 03/29/17 19:06 19:06 19:06 Monocytes % 13.4 H VBG pH 7.12 L* VBG pCO2 VBG HCO3 11.0 L Sodium 127.5 L Potassium 5.5 H Chloride Carbon Dioxide 7 L* BUN 83 H Creatinine 4.18 H Est GFR ( Amer) 13 L Est GFR (Non-Af Amer) 11 L Glucose 123 H Calcium AST 12 L Urine Blood 03/29/17 03/30/17 03/30/17 20:30 00:03 00:03 Monocytes % VBG pH 7.11 L* VBG pCO2 30.7 L VBG HCO3 9.6 L Sodium 135.1 L Potassium 5.1 H Chloride 120 H Carbon Dioxide 7 L* BUN 69 H Creatinine 2.95 H Est GFR ( Amer) 20 L Est GFR (Non-Af Amer) 16 L Glucose Calcium 7.9 L AST Urine Blood SMALL H Critical Care Note - Critical Care Note Total time excluding time spent on procedures (mins): 45 - Metabolic acidosis, acute renal failure, hypotension Comments: Please allow 45 minutes of critical care time for evaluation and treatment of patient with hypotension, metabolic acidosis, acute renal failure, requiring multiple re-evaluations, IV fluids, pressor, discussion with family members, consultation and transfer to tertiary care facility. Discharge - Discharge Clinical Impression: Metabolic acidosis Hypotension Qualifiers: Hypotension type: unspecified hypotension type Qualified Code(s): I95.9 - Hypotension, unspecified Acute renal failure Qualifiers: Acute renal failure type: unspecified Qualified Code(s): N17.9 - Acute kidney failure, unspecified Condition: Serious Disposition: [facility] Referrals: RATNA SANTOS DO [Primary Care Provider] - Follow up as needed
[2017-03-29 19:56] LABS: CREATINE KINASE MB < 0.22 ng/mL (<4.55); TROPONIN I < 0.012 ng/mL
[2017-03-29] MEDS ORDERED: ONDANSETRON HCL INJ/PF 4 MG/2 ML SDV IV ONE (20:53)
[2017-03-29] MEDS ORDERED: FENTANYL CITRATE INJ/PF 100 MCG/2 ML AMPUL IV ONE ×2 (20:53)
[2017-03-29 20:58] LABS: AMORPHOUS SEDIMENT,URINE TRACE /HPF; APPEARANCE,URINE CLOUDY; BILIRUBIN,URINE NEGATIVE (NEGATIVE); GLUCOSE, URINE NEGATIVE (NEGATIVE); KETONES,URINE NEGATIVE (NEGATIVE); LEUKOCYTE ESTERASE,URINE NEGATIVE (NEGATIVE); NITRITE,URINE NEGATIVE (NEGATIVE); PROTEIN,URINE NEGATIVE (NEGATIVE); URINE SPECIFIC GRAVITY 1.009; UROBILINOGEN,URINE NEGATIVE mg/dL (<2.0)
[2017-03-29] MEDS ORDERED: NORMAL SALINE 1000 ML 1,000 ML IV ONE ×2 (21:10)
[2017-03-29] MEDS ORDERED: NORMAL SALINE 1000 ML 1,000 ML IV PRN (23:56)
[2017-03-29] MEDS ORDERED: DEXTROSE 50%-WATER 25 GM/50 ML DISP.SYRIN IV PRN ×2 (23:57)
[2017-03-29] MEDS ORDERED: GLUCAGON,HUMAN RECOMB 1 MG INJ IM PRN (23:57)
[2017-03-29] MEDS ORDERED: DEXTROSE 40% GEL 15 GM TUBE PO PRN ×2 (23:57)
[2017-03-30] MEDS ORDERED: NOREPINEPHRINE BITARTRATE INJ/PF 4 MG/4 ML SDV IV ONE
[2017-03-30] MEDS: DEXTROSE 5%-WATER 250 ML with NOREPINEPHRINE BITARTRATE 4 MG IV PRN ×4 (00:06→02:18)
[2017-03-30] MEDS ORDERED: NORMAL SALINE 1000 ML 2,000 ML IV ONE (00:15)
[2017-03-30 00:23] LABS: VENOUS BLOOD BASE EXCESS -18.6 mmol/L; VENOUS BLOOD HCO3 9.6 mmol/L (20-32); VENOUS BLOOD PCO2 30.7 mmHg (35-63)
--- NOTE | 2017-03-30 00:30 | PDOC CONSULTATION ---
Consultation Consult Date: 03/29/17 Attending physician:: KEVIN PUGA Consult reason:: acidosis, arf, shock History of Present Illness Admission Date/PCP: Bertha JAQUEZ, [facility] Patient complains of: weak, sob History of Present Illness: NEVILLE JOY is a 61 year old female with underlying type 2 diabetes mellitus, history of nephrolithiasis, history of DVT, 2009, short-term Coumadin afterwards, and chronic back and right hip pain, currently being followed by [facility] for same, who presents to the emergency room for above complaints. Patient has been discussed with emergency room nurse practitioner who evaluated the patient. Patient somewhat of a vague perhaps slightly rambling historian. 2 weeks ago, she states while standing at her sink she became much weaker than usual in her lower extremities. Was subsequently seen at the pain management clinic and was started on soma and a tapering dose of oral steroids. Improved for a while, but over the last several days she has noted increasing generalized weakness, perhaps a bit more noticeable in her right lower extremity , which bothers her on a chronic basis. No upper extremity involvement. No dysphagia, dysarthria, or drooling. Questionable history of TIA, but no history of stroke or seizure. She has had nausea but no vomiting. Questionable chills over the last 2 or 3 days. No dysuria or fever. No chest or abdominal pain. Little p.o. intake over the last 2-3 days. Ostomy output, with patient having a permanent colostomy secondary to colon cancer surgery, is without change. Since being started on the soma 2 weeks ago, she has taken only 1 or 2 doses, with her last dose taken earlier today. Other new medications include glipizide 2.5 mg p.o. twice daily started 23 February. Has been on Invokana for the past 2 months. Also recently started on Zofran. Otherwise no change in her medications. States she is compliant with her medications. Does not use pain patches. Workup so far has been remarkable for acute renal failure and metabolic acidosis , along with persistent hypotension. Systolic pressures have increased slightly into the upper 90s after normal saline boluses, but after a 4 L bolus of saline, systolic pressure now back down to 80. Hospitalized on our service August 05- of this year with discharge diagnoses including influenza, pneumonia, and acute kidney injury. History and physical and discharge summary have been reviewed. Admitted to our service January 27, 2014 for TIA. History and physical has been reviewed. Dictation via voice recognition software. Laboratory results are listed in [employer] and are reviewed. X-ray summary results are listed below, with full report(s) reviewed. . EKG reviewed. Social history/personal habits: . One child. On disability due to combination of problems since her colon cancer surgery, along with chronic back right hip and lower extremity pain. One pack of cigarettes per day. No alcohol or illicit drug use. No known drug allergies. Home medications initially autopopulated into [employer] may not accurately reflect patient's true medications, dosages, and/or frequencies. spd tech has reconciled medications. REVIEW OF SYSTEMS: Constitutional: See history and present illness. Eyes: Wears glasses ENT: No swallowing problems or complaints. Partial hearing loss. Pulmonary: No current complaints. Cardiovascular: No current complaints, including chest pain. Gastrointestinal: See history and present illness. Skin: No current complaints, including rashes. Hematologic: Easy bruising. Neurologic: See history and present illness. Musculoskeletal: See history and present illness. Psychiatric: Denies anxiety or depression. Endocrine: No current complaints, including polyuria. Genitourinary: No current complaints, including dysuria. PHYSICAL EXAMINATION: Pulse 85. 99% saturation on room air. Blood pressure 82/40. Respirations are 14 and unlabored. 5 feet 4 inches tall. 60.5 kg. BMI 22.9 kg/m. Temperature 97.7. Female emergency room assisted living nursing director Freddie is present. Thin somewhat chronically ill-appearing female, who appears a bit older than her stated age. Awake alert and cooperative. Appears not to feel very well, with primary complaints being her chronic lower back and right hip pain. Slightly fatigued. Otherwise, awake alert and cooperative. Skin is warm and dry. No grossly obvious evidence of rash in areas of skin examined. No subcutaneous nodules palpated. ENT: Hearing grossly normal to normal conversation. Tongue midline on protrusion pink and slightly tacky. Eyes: No scleral icterus. Pupils equal and reactive to light at 4 mm. [place] conjunctivae. Neck is supple and nontender to gentle active range of motion and palpation. Midline trachea. No palpable thyroid nodule mass enlargement or tenderness. Lymphatic: No palpable cervical or clavicular nodes. Neck and lymphatic exams limited by patient body habitus. Psychiatric: Reasonable insight into acute and chronic medical issues. Oriented to time location and why here. Lungs: Auscultation reveals clear and equal breath sounds bilaterally. No use of accessory respiratory muscles. Cardiovascular: Heart regular rate and rhythm, without gallop murmur or rub. No carotid or abdominal aortic bruits. No ankle or pedal edema. Faintly palpable dorsalis pedis pulses. Abdomen:soft slightly distended nontender with positive bowel sounds. Unable to adequately evaluate abdomen for masses or organomegaly due to distention. Ostomy bag in place with gas present in bag. Extremities: Feet are warm and dry. No calf tenderness to compression. No grossly obvious visual evidence of calf swelling. Gentle manipulation of lower extremities fails to reveal any obvious evidence of injury or instability to knees hips or ankles. Neurologic: Moves upper extremities grossly normally. Patellar reflexes absent. Absent Babinski. Light touch slightly decreased at feet, right greater than left, which is chronic, according to patient. Dorsiflexion and plantarflexion of feet 5 / 5 and symmetric. Past Medical History Cardiac Medical History: Reports: DVT - 2008; treated with short-term Coumadin Denies: Atrial Fibrillation, Congestive Heart Failure, Coronary Artery Disease, Myocardial Infarction, Hyperlipidema, Hypertension, Pulmonary Embolism Pulmonary Medical History: Reports: Pneumonia Denies: Asthma, Bronchitis, Chronic Obstructive Pulmonary Disease (COPD), Sleep Apnea EENT Medical History: Reports: Eyes - Glasses, Ears - Partial hearing loss Neurological Medical History: Denies: Seizures Endocrine Medical History: Reports: Diabetes Mellitus Type 2 Denies: Diabetes Mellitus Type 1, Hyperthyroidism, Hypothyroidism Malignancy Medical History: Reports: Colorectal Cancer - Permanent colostomy GI Medical History: Denies: Cirrhosis, Gastroesophageal Reflux Disease, Hepatitis, Peptic Ulcer Disease Musculoskeltal Medical History: Reports: Arthritis - Chronic back and right hip pain Psychiatric Medical History: Reports: Tobacco Dependency Denies: Alcohol Dependency, Depression, General Anxiety Disorder, Substance Abuse Hematology: Reports: Other - Easy bruising Denies: Anemia Infectious Medical History: Denies: Hepatitis B, Hepatitis C Past Surgical History Past Surgical History: Reports: Colostomy Social History Information Source: Patient, Emergency Med Personnel, [facility] Records Lives with: Spouse/Significant other Smoking Status: Current Every Day Smoker Frequency of Alcohol Use: None Hx Recreational Drug Use: No Drugs: None Hx Prescription Drug Abuse: No - Advance Directive Resuscitation Status: Full Code Surrogate healthcare decision maker:: Family History Family History: Reviewed & Not Pertinent, DM Parental Family History Reviewed: Yes - Father of ruptured aneurysm; mother of ischemic bowel Children Family History Reviewed: Yes - Healthy Sibling(s) Family History Reviewed.: Yes - Uncertain health status Medication/Allergy Home Medications: Baclofen [Baclofen 10 mg Tablet] 10 mg PO BIDP PRN 03/29/17 Canagliflozin [Invokana] 300 mg PO DAILY 03/29/17 Carisoprodol [Soma 350 Mg Tablet] 350 mg PO BID 03/29/17 Cilostazol [Pletal 100 Mg Tablet] 100 mg PO DAILY 03/29/17 Clopidogrel Bisulfate [Plavix 75 mg Tablet] 75 mg PO DAILY 03/29/17 Glipizide [Glocotrol 5 Mg Tablet] 2.5 mg PO BID 03/29/17 Lisinopril [Prinivil 5 mg Tablet] 5 mg PO DAILY 03/29/17 Ondansetron HCl [Zofran 4 mg Tablet] 1 tab PO TIDP PRN 03/29/17 Oxycodone HCl/Acetaminophen [Percocet 5-325 mg Tablet] 1 tab PO 5XDP PRN RX: Biotin 5,000 mcg PO DAILY 03/29/17 Allergies/Adverse Reactions: No Known Allergies Allergy (Verified 09/16/15 11:39) Physical Exam Vital Signs: Temp Pulse Resp BP Pulse Ox 97.7 F 86 17 98/46 L 100 03/29/17 18:24 03/29/17 18:24 03/29/17 22:07 03/29/17 22:19 03/29/17 22:07 Intake & Output 03/28/17 03/29/17 03/30/17 00:59 00:59 00:59 Weight 60.45 kg Results Laboratory Results: 03/29/17 19:06 03/29/17 03/29/17 03/29/17 19:06 19:06 19:06 WBC 8.6 RBC 4.03 Hgb 12.5 Hct 37.6 MCV 93 MCH 31.1 MCHC 33.3 RDW 13.9 Plt Count 315 Seg Neutrophils % 67.7 Lymphocytes % 16.3 Monocytes % 13.4 H Eosinophils % 1.8 Basophils % 0.8 Absolute Neutrophils 5.8 Absolute Lymphocytes 1.4 Absolute Monocytes 1.1 Absolute Eosinophils 0.2 Absolute Basophils 0.1 VBG pH 7.12 L* VBG pCO2 35.0 VBG HCO3 11.0 L VBG Base Excess -17.4 Sodium 127.5 L Potassium 5.5 H Chloride 107 Carbon Dioxide 7 L* Anion Gap 14 BUN 83 H Creatinine 4.18 H Est GFR ( Amer) 13 L Est GFR (Non-Af Amer) 11 L Glucose 123 H Lactic Acid Calcium 9.6 Magnesium Total Bilirubin 0.2 AST 12 L ALT 28 Alkaline Phosphatase 112 Total Protein 6.6 Albumin 3.9 Urine Color Urine Appearance Urine pH Ur Specific [place] Urine Protein Urine Glucose (UA) Urine Ketones Urine Blood Urine Nitrite Ur Leukocyte Esterase Urine WBC (Auto) Urine RBC (Auto) 03/29/17 03/29/17 03/29/17 19:06 19:06 20:30 WBC RBC Hgb Hct MCV MCH MCHC RDW Plt Count Seg Neutrophils % Lymphocytes % Monocytes % Eosinophils % Basophils % Absolute Neutrophils Absolute Lymphocytes Absolute Monocytes Absolute Eosinophils Absolute Basophils VBG pH VBG pCO2 VBG HCO3 VBG Base Excess Sodium Potassium Chloride Carbon Dioxide Anion Gap BUN Creatinine Est GFR ( Amer) Est GFR (Non-Af Amer) Glucose Lactic Acid 0.8 Calcium Magnesium 2.2 Total Bilirubin AST ALT Alkaline Phosphatase Total Protein Albumin Urine Color YELLOW Urine Appearance CLOUDY Urine pH 5.0 Ur Specific [place] 1.009 Urine Protein NEGATIVE Urine Glucose (UA) NEGATIVE Urine Ketones NEGATIVE Urine Blood SMALL H Urine Nitrite NEGATIVE Ur Leukocyte Esterase NEGATIVE Urine WBC (Auto) 4 Urine RBC (Auto) 4 03/29/17 03/29/17 22:00 23:40 WBC RBC Hgb Hct MCV MCH MCHC RDW Plt Count Seg Neutrophils % Lymphocytes % Monocytes % Eosinophils % Basophils % Absolute Neutrophils Absolute Lymphocytes Absolute Monocytes Absolute Eosinophils Absolute Basophils VBG pH Cancelled VBG pCO2 Cancelled VBG HCO3 Cancelled VBG Base Excess Cancelled Sodium Cancelled Potassium Cancelled Chloride Cancelled Carbon Dioxide Cancelled Anion Gap Cancelled BUN Cancelled Creatinine Cancelled Est GFR ( Amer) Cancelled Est GFR (Non-Af Amer) Cancelled Glucose Cancelled Lactic Acid Calcium Cancelled Magnesium Total Bilirubin AST ALT Alkaline Phosphatase Total Protein Albumin Urine Color Urine Appearance Urine pH Ur Specific [place] Urine Protein Urine Glucose (UA) Urine Ketones Urine Blood Urine Nitrite Ur Leukocyte Esterase Urine WBC (Auto) Urine RBC (Auto) 03/29/17 03/29/17 19:06 19:06 Creatine Kinase 35 CK-MB (CK-2) < 0.22 Troponin I < 0.012 Impressions: Chest X-Ray 03/29/17 18:50 IMPRESSION: No acute findings. Assessment & Plan - Diagnosis (1) Hyperkalemia Is this a current diagnosis for this admission?: Yes Plan: Likely secondary to her underlying renal failure. Repeat Chem-7 pending. If hyperkalemia persists and/or certainly if worsens, will need to consider transfer to a tertiary center, since our hospital does not have nephrology coverate this week. Patient normally does not see a shipping and receiving coordinator. (2) Shock Is this a current diagnosis for this admission?: Yes Plan: Further vigorous IV fluid hydration. Nurse practitioner has started Levophed. If stays at our facility, will obviously need intensive care unit admission. (3) ARF (acute renal failure) Qualifiers: Acute renal failure type: unspecified Qualified Code(s): N17.9 - Acute kidney failure, unspecified Is this a current diagnosis for this admission?: Yes Plan: Suspect prerenal. If improves with hydration, serial chemistry. If no improvement with hydration, consider renal ultrasound. (4) High anion gap metabolic acidosis Is this a current diagnosis for this admission?: Yes Plan: As above for hyperkalemia. - Plan Summary Plan Summary: As noted above, if acidosis and/or hyperkalemia improve with current treatment, will admit to our intensive care unit. Otherwise, will likely need transfer to a tertiary center for nephrology input. Discussed with the ER nurse practitioner. Thank you for asking us see this unfortunate patient. 70 minutes critical care time.
[2017-03-30 00:42] LABS: ANION GAP 8 (5-19); BLOOD UREA NITROGEN 69 mg/dL (7-20); CALCIUM 7.9 mg/dL (8.4-10.2); CHLORIDE 120 mmol/L (98-107); CREATININE RESULT 2.95 mg/dL (0.52-1.25); GLUCOSE 93 mg/dL (75-110); POTASSIUM 5.1 mmol/L (3.6-5.0); SODIUM 135.1 mmol/L (137-145); VENOUS BLOOD PH 7.11 (7.30-7.42)
[2017-03-30 01:06] LABS: CARBON DIOXIDE 7 mmol/L (22-30)
[2017-03-30] MEDS ORDERED: DEXTROSE 5%-WATER 1000 ML 1,000 ML with SODIUM BICARBONATE 150 MEQ IV PRN ×2 (02:17)
[2017-03-30] MEDS ORDERED: SODIUM BICARBONATE 8.4% INJ 50 MEQ/50 ML DISP.SYRIN ONE (02:32)
[2017-03-30 03:50] VITALS: BP 107/43
--- NOTE | 2017-03-30 11:12 | EKG REPORT ---
SEVERITY:- NORMAL ECG - SINUS RHYTHM : Confirmed by: Chika Edgar MD 30-Mar-2017 11:12:30
== END 2017-03-30 04:07 | disposition short-term general hospital (02) ==
LOC: ER 18:00
DX: E87.2 Acidosis (principal); N17.9 Acute kidney failure, unspecified; R57.9 Shock, unspecified; E87.5 Hyperkalemia; R06.02 Shortness of breath; M25.551 Pain in right hip; F17.210 Nicotine dependence, cigarettes, uncomplicated; E78.00 Pure hypercholesterolemia, unspecified; E11.9 Type 2 diabetes mellitus without complications; Z93.3 Colostomy status; Z85.038 Personal history of other malignant neoplasm of large intestine; Z86.718 Personal history of other venous thrombosis and embolism
CPT/HCPCS: 93005; 99291; 96361; 51701; 51702; 96374; 96375; 36415; 87040; 82553; 82550; 83735; 85025; 80048; 80053; 81001; 84484; 87493; 82803; 83605; 71020; 93010; J3010; J3490; J2405; J7060; J7030 ×2

== ENCOUNTER 2017-07-13 10:51 | Emergency (ER) | payer MEDICARE ==
[2017-07-13] MEDS ORDERED: HYDROMORPHONE HCL INJ/PF 2 MG/ML AMPULE IM ONE ×2 (11:37→13:09)
[2017-07-13] MEDS ORDERED: ONDANSETRON 4 MG TAB.RAPDIS PO ONE (11:38)
--- NOTE | 2017-07-13 11:41 | ER Document Report ---
ED Neck/Back Problem - General Chief Complaint: Pain All Over Stated Complaint: LEG FOOT PAIN Time Seen by Provider: 07/13/17 11:23 Mode of Arrival: Wheelchair Information source: Patient, Relative TRAVEL OUTSIDE OF THE [place] IN LAST 30 DAYS: No - HPI Patient complains to provider of: Pain Onset: Other - chronic Where: Home Onset: Gradual Timing: Constant Severity: Severe Associated symptoms: Numbness/tingling, Radiation to leg, Lower back pain. denies: Chest pain, Abdominal pain, Chills, Constipation, Fever, Incontinence, Motor loss, Radiation to arm, Radiation to chest, Sensory loss, Sweaty, Unable to urinate, Upper back pain Exacerbated by: Movement of trunk Relieved by: Nothing Notes: Patient arrives with complaints of low back pain and bilateral hip pain radiating into the right leg. 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 She states that the pain in her hips has been going on for the last several years seems to be getting worse. She reports that she is having numbness and tingling to the bottoms of both of her feet for the last few months. She denies any recent falls or injuries. She denies IV drug use. She is on Plavix but denies any other blood thinning medications. She denies any IV drug use. She denies any bowel or bladder dysfunction. She states that her pain got worse last night, she took her normal pain medication which did not help, so she came emergency department for evaluation. She denies any abdominal pain. No dysuria or hematuria. - Related Data Allergies/Adverse Reactions: No Known Allergies Allergy (Verified 09/16/15 11:39) Past Medical History - Social History Smoking Status: Current Every Day Smoker Chew tobacco use (# tins/day): No Frequency of alcohol use: None Drug Abuse: None Family History: Reviewed & Not Pertinent, DM Patient has suicidal ideation: No Patient has homicidal ideation: No - Past Medical History Cardiac Medical History: Reports: Hx DVT - 2008; treated with short-term Coumadin Denies: Hx Atrial Fibrillation, Hx Congestive Heart Failure, Hx Coronary Artery Disease, Hx Heart Attack, Hx Hypercholesterolemia, Hx Hypertension, Hx Pulmonary Embolism Pulmonary Medical History: Reports: Hx Pneumonia Denies: Hx Asthma, Hx Bronchitis, Hx COPD, Hx Sleep Apnea Neurological Medical History: Denies: Hx Cerebrovascular Accident, Hx Seizures Endocrine Medical History: Reports: Hx Diabetes Mellitus Type 2. Denies: Hx Diabetes Mellitus Type 1, Hx Hyperthyroidism, Hx Hypothyroidism Renal/ Medical History: Denies: Hx Peritoneal Dialysis Malignancy Medical History: Reports: Hx Colorectal Cancer - Permanent colostomy GI Medical History: Denies: Hx Cirrhosis, Hx Gastroesophageal Reflux Disease, Hx Hepatitis Musculoskeltal Medical History: Reports Hx Arthritis - Chronic back and right hip pain Psychiatric Medical History: Denies: Hx Depression Infectious Medical History: Denies: Hx Hepatitis Past Surgical History: Reports: Hx Abdominal Surgery - Colostomy, Hx Colostomy. Denies: Hx Hysterectomy - Immunizations Hx Diphtheria, Pertussis, Tetanus Vaccination: No Review of Systems - Review of Systems -: Yes All other systems reviewed and negative Physical Exam - Vital signs Vitals: Temp Pulse Resp BP Pulse Ox 97.4 F 90 20 103/40 L 100 07/13/17 11:10 07/13/17 11:10 07/13/17 11:10 07/13/17 11:10 07/13/17 11:10 - Notes Notes: GENERAL: alert, cooperative, nontoxic, no distress. HEAD: normocephalic, atraumatic EYES: conjunctiva pink without discharge, no external redness or swelling. EARS: no external swelling, no external redness NOSE: atraumatic, no external swelling MOUTH/THROAT: mucous membranes moist and pink, posterior pharynx without erythema, swelling, exudate. No trismus or drooling. NECK: soft, supple, full range of motion, no meningismus. CHEST: no distress, lungs clear and equal throughout. No wheezing, rales, rhonchi. CARDIAC: regular rate and rhythm, no murmur, normal capillary refill, normal pulses. No peripheral edema noted. ABDOMEN: soft, nontender, no pusatile mass. Colostomy noted. BACK: Mild tenderness to the right SI joint. Slightly limited range of motion secondary to pain. No midline tenderness step-offs or crepitus. No rash. No CVA tenderness. EXTREMITIES: full range of motion of all extremities. No redness, no swelling. NEURO: alert and oriented A&O x 3, no focal deficits, full range of motion of all extremities. 5 out of 5 flexion and extension of the lower extremities bilaterally. Patellar and Achilles deep tendon reflexes are +2 bilaterally. Normal sensation with no saddle anesthesia. Patient can dorsiflex her great toes bilaterally. PYSCH: appropriate mood, affect. Patient is cooperative. SKIN: pink, warm, dry, no rash. Course - Re-evaluation Re-evalutation: 07/13/17 12:33 Patient received her medications approximately 10 minutes ago. No change in pain at this time. X-rays have been reviewed and show no acute findings with degenerative changes. We will continue to observe and reevaluate. 07/13/17 13:09 Patient is feeling some relief from her pain medication. We will give her 1 more dose of pain medication to improve her pain further continue to monitor if she continues to improve she will be discharged home. 07/13/17 14:09 Patient is nontoxic appearing with stable vitals. The patient has a long history of chronic back and hip pain and is currently on meloxicam, baclofen, Percocet. Pain seems to gotten worse without any specific injuries. She has no bowel or bladder dysfunction, is a nonfocal neurological exam. Patient was given a shot of pain medication here in the emergency department and is feeling better at this time. She is able to ambulate. Patient obviously has a pain contract, therefore no prescriptions can be written for her exacerbation of her pain. This point she will be discharged home with instructions to follow-up with her pain management doctor at the next available appointment for reevaluation. Patient has a history of diabetes and has not been compliant with her medication, therefore I will avoid putting her on steroids at this time. Patient has no sign of cauda equina, epidural abscess or bleed, discitis, limb ischemia. The patient's emergency department workup and current diagnosis were explained to the patient and or family. Follow-up instructions were provided. Medications if prescribed were discussed. Instructions for when to return to the emergency department including specific worrisome symptoms were discussed with the patient and/or family. - Vital Signs Vital signs: Temp Pulse Resp BP Pulse Ox 97.4 F 90 20 103/40 L 100 07/13/17 11:10 07/13/17 11:10 07/13/17 11:10 07/13/17 11:10 07/13/17 11:10 - Diagnostic Test Radiology reviewed: Image reviewed, Reports reviewed - Degenerative changes of the lumbar spine and bilateral hips. No acute findings per the radiologist. Discharge - Discharge Clinical Impression: Acute exacerbation of chronic low back pain Condition: Stable Disposition: HOME, SELF-CARE Instructions: Chronic Pain Control ([facility]), Chronic Back Pain ([facility]) Additional Instructions: Continue taking her normal medications. Follow-up with your doctor at the next available appointment. Follow-up sooner for increased pain, fever, difficulty controlling her bowels or bladder, persistent vomiting, severe abdominal pain, chest pain, shortness of breath, or any further concerns. Forms: Smoking Cessation Education Referrals: RATNA SANTOS I, [Primary Care Provider] - Follow up as needed
--- NOTE | 2017-07-13 12:16 | RADIOLOGY REPORT (SQ) ---
EXAM DESCRIPTION: L SPINE WHOLE COMPLETED DATE/TIME: 07/13/2017 12:05 pm REASON FOR STUDY: chronic pain, getting worse COMPARISON: None. NUMBER OF VIEWS: Five views including obliques. TECHNIQUE: AP, lateral, oblique, and sacral radiographic images acquired of the lumbar spine. LIMITATIONS: None. FINDINGS: MINERALIZATION: Normal. SEGMENTATION: Normal. No transitional anatomy. ALIGNMENT: There is a minimal lumbar scoliosis convex to the left which may be positional in nature. VERTEBRAE: Maintained height. No fracture or worrisome bone lesion. DISCS: Preserved height. There is some minimal anterior osteophytic lipping at multiple levels. POSTERIOR ELEMENTS: Pedicles and facets are intact. No pars defect or posterior arch defects. HARDWARE: None in the spine. PARASPINAL SOFT TISSUES: Normal. PELVIS: Intact as visualized. No fractures or worrisome bone lesions. SI joints intact. OTHER: No other significant finding. IMPRESSION: Minimal degenerative changes as noted above TECHNICAL DOCUMENTATION: JOB ID: [id number] [email or web address]- All Rights Reserved
--- NOTE | 2017-07-13 12:19 | RADIOLOGY REPORT (SQ) ---
EXAM DESCRIPTION: HIP BILATERAL COMPLETED DATE/TIME: 07/13/2017 12:05 pm REASON FOR STUDY: chronic pain, getting worse COMPARISON: None. NUMBER OF VIEWS: Two views TECHNIQUE: AP pelvis and additional frog-leg view of both hips. LIMITATIONS: None. FINDINGS: MINERALIZATION: Normal. HIPS: No acute fracture or dislocation. No worrisome bone lesions. PELVIS AND SACRUM: No acute fracture or dislocation. No worrisome bone lesions. Mild degenerative c hanges are identified with osteophytic lipping. PUBIS AND ISCHIUM: No acute fracture. LOWER LUMBAR SPINE: See results under lumbar spine series SOFT TISSUES: No findings. OTHER: No other significant finding. IMPRESSION: Mild degenerative changes in the hip articulations. Other findings as noted above TECHNICAL DOCUMENTATION: JOB ID: [id number] [employer]- All Rights Reserved
[2017-07-13 14:20] VITALS: BP 100/69
== END 2017-07-13 14:20 | disposition home or self-care (01) ==
LOC: ER 10:51
DX: G89.29 Other chronic pain (principal); M54.5 Low back pain; M25.551 Pain in right hip; M25.552 Pain in left hip; M47.9 Spondylosis, unspecified; Z79.891 Long term (current) use of opiate analgesic; Z79.899 Other long term (current) drug therapy; Z79.1 Long term (current) use of non-steroidal anti-inflammatories (NSAID); R20.0 Anesthesia of skin; R20.2 Paresthesia of skin; F17.200 Nicotine dependence, unspecified, uncomplicated; Z86.718 Personal history of other venous thrombosis and embolism; Z79.02 Long term (current) use of antithrombotics/antiplatelets; Z85.048 Personal history of other malignant neoplasm of rectum, rectosigmoid junction, and anus; Z93.3 Colostomy status
CPT/HCPCS: 99283; 96372; 72110; 73522; A9270; J1170; S0119

== ENCOUNTER 2017-07-14 16:28 | Emergency (ER) | payer MEDICARE ==
[2017-07-14 17:19] LABS: ABSOLUTE LYMPHOCYTES (AUTO) 1.6 10^3/uL (0.5-4.7); ABSOLUTE MONOCYTES (AUTO) 1.4 10^3/uL (0.1-1.4); ABSOLUTE NEUT (AUTO) 12.4 10^3/uL (1.7-8.2); BASOPHILS % (AUTO) 0.2 % (0-2); EOSINOPHILS % (AUTO) 0.2 % (0-6); HEMATOCRIT 27.2 % (36.0-47.0); HEMOGLOBIN 8.8 g/dL (12.0-15.5); LYMPHOCYTES % (AUTO) 10.4 % (13-45); MEAN CORPUSCULAR HEMOGLOBIN 30.9 pg (27.0-33.4); MEAN CORPUSCULAR HGB CONC 32.3 g/dL (32.0-36.0); MEAN CORPUSCULAR VOLUME 96 fl (80-97); MONOCYTES % (AUTO) 9.2 % (3-13); PLATELET COUNT 241 10^3/uL (150-450); RED BLOOD COUNT 2.85 10^6/uL (3.72-5.28); RED CELL DISTRIBUTION WIDTH 14.7 % (11.5-14.0); TOTAL CELLS COUNTED % (AUTO) 100 %; WHITE BLOOD COUNT 15.5 10^3/uL (4.0-10.5)
[2017-07-14 17:21] LABS: INTERNATIONAL RATION (INR) 1.03; PROTHROMBIN TIME 14.2 SEC (11.4-15.4)
[2017-07-14 17:23] LABS: ALANINE AMINOTRANSFERASE 18 U/L (9-52); ALBUMIN 3.4 g/dL (3.5-5.0); ALKALINE PHOSPHATASE 69 U/L (38-126); ASPARTATE AMINO TRANSFERASE 12 U/L (14-36); BILIRUBIN,DIRECT 0.2 mg/dL (0.0-0.4); BILIRUBIN,TOTAL 0.2 mg/dL (0.2-1.3); BLOOD UREA NITROGEN 101 mg/dL (7-20); CALCIUM 9.1 mg/dL (8.4-10.2); CHLORIDE 117 mmol/L (98-107); GLUCOSE 87 mg/dL (75-110); POTASSIUM 5.9 mmol/L (3.6-5.0); SODIUM 136.8 mmol/L (137-145); TOTAL PROTEIN 5.7 g/dL (6.3-8.2)
[2017-07-14 17:39] LABS: CARBON DIOXIDE < 5 mmol/L (22-30)
[2017-07-14] MEDS ORDERED: MORPHINE SULFATE 10 MG/ML INJ IV ONE ×4 (17:50→22:08)
[2017-07-14] MEDS ORDERED: ONDANSETRON HCL INJ/PF 4 MG/2 ML SDV IV ONE (17:50)
[2017-07-14 17:51] LABS: AMORPHOUS SEDIMENT,URINE TRACE /HPF; APPEARANCE,URINE CLOUDY; BILIRUBIN,URINE NEGATIVE (NEGATIVE); COLOR,URINE YELLOW; GLUCOSE, URINE NEGATIVE (NEGATIVE); KETONES,URINE NEGATIVE (NEGATIVE); LEUKOCYTE ESTERASE,URINE NEGATIVE (NEGATIVE); NITRITE,URINE NEGATIVE (NEGATIVE); PROTEIN,URINE 30 mg/dL (NEGATIVE); URINE SPECIFIC GRAVITY 1.012; UROBILINOGEN,URINE NEGATIVE mg/dL (<2.0)
[2017-07-14] MEDS ORDERED: NORMAL SALINE 1000 ML 2,000 ML IV ONE (18:22)
[2017-07-14 18:29] LABS: ARTERIAL BLOOD BASE EXCESS -22.9 mmol/L; ARTERIAL BLOOD FIO2 ROOM AIR; ARTERIAL BLOOD H2CO3 0.71 mmol/L (1.05-1.35); ARTERIAL BLOOD HCO3 6.1 mmol/L (20-26); ARTERIAL BLOOD O2 SATURATION 70.8 % (94-98); ARTERIAL BLOOD PCO2 23.5 mmHg (35-45); ARTERIAL BLOOD PO2 52.2 mmHg (80-100); ARTERIAL BLOOD TOTAL CO2 6.8 mmol/L (21-25)
[2017-07-14 18:31] LABS: ARTERIAL BLOOD PH 7.03 (7.35-7.45)
[2017-07-14] MEDS: NORMAL SALINE 1000 ML 1,000 ML IV PRN (18:34)
--- NOTE | 2017-07-14 18:47 | ER Document Report ---
ED General - General Chief Complaint: Altered Mental Status Stated Complaint: ALTERED MENTAL STATUS Time Seen by Provider: 07/14/17 17:35 Notes: Patient is complaining of severe pain in her right hip. She says she has had this pain "all my life", but it has worsened recently. She was seen here last night for the same complaint and had x-rays of the hip and lumbar spine that were read as arthritic changes and nothing else acute. She received pain medications and was discharged. She was brought back in this evening by EMS. They noted that the patient's blood pressure was low at 79/44 and she was given a bolus of saline in route here patient's reported to EMS that the patient had been confused at times recently. She has had no history of any neurologic disorders or strokes. Denies vomiting or diarrhea. Denies chest pain or abdominal pain. Denies any headaches. Denies fever. TRAVEL OUTSIDE OF THE [place] IN LAST 30 DAYS: No - Related Data Allergies/Adverse Reactions: No Known Allergies Allergy (Verified 09/16/15 11:39) Past Medical History - Social History Smoking Status: Current Every Day Smoker Chew tobacco use (# tins/day): No Frequency of alcohol use: None Drug Abuse: None Family History: Reviewed & Not Pertinent, DM Patient has suicidal ideation: No Patient has homicidal ideation: No - Past Medical History Cardiac Medical History: Reports: Hx DVT - 2008; treated with short-term Coumadin Pulmonary Medical History: Reports: Hx Pneumonia Endocrine Medical History: Reports: Hx Diabetes Mellitus Type 2 Renal/ Medical History: Reports: Hx Renal Insufficiency, Other - Patient was in this hospital in March, last 2006 with hypotension Malignancy Medical History: Reports: Hx Colorectal Cancer - Permanent colostomy Musculoskeltal Medical History: Reports Hx Arthritis - Chronic back and right hip pain Past Surgical History: Reports: Hx Abdominal Surgery - Colostomy, Hx Colostomy. Denies: Hx Hysterectomy - Immunizations Hx Diphtheria, Pertussis, Tetanus Vaccination: No Review of Systems - Review of Systems Notes: REVIEW OF SYSTEMS: CONSTITUTIONAL : Denies fever. No recent injury, fall, etc. EENT: Denies eye, ear, nose or mouth or throat pain or other symptoms. CARDIOVASCULAR: Denies chest pain. RESPIRATORY: Denies cough, chest congestion, or shortness of breath. GASTROINTESTINAL: Denies abdominal pain or nausea, vomiting, or diarrhea. Has a colostomy. No change in bowel movements. GENITOURINARY: Denies difficulty or painful urinating, urinary frequency, blood in urine. MUSCULOSKELETAL: Denies back or neck pain. Complains of pain in the right posterior hip/buttock region. See HPI. SKIN: Denies rash or skin lesions. NEUROLOGICAL: Denies LOC or altered mental status, but patient's told EMS that she has had episodes of being confused and mixing up when it is time to fix meals and so forth. Denies headache. Denies sensory loss or motor deficits. ALL OTHER SYSTEMS REVIEWED AND NEGATIVE. Physical Exam - Vital signs Vitals: Temp Pulse Resp BP Pulse Ox 97.7 F 86 18 84/34 L 100 07/14/17 16:35 07/14/17 16:35 07/14/17 16:35 07/14/17 16:35 07/14/17 16:35 Interpretation: Hypotensive - Notes Notes: PHYSICAL EXAMINATION: GENERAL: Well-appearing, seems to be oriented. He appears to be in pain and complaining of same. HEAD: Atraumatic, normocephalic. EYES: Pupils equal round and reactive to light, extraocular movements intact. ENT: oropharynx clear without exudates. Moist mucous membranes. NECK: Normal range of motion, supple. LUNGS: Breath sounds clear and equal bilaterally. HEART: Regular rate and rhythm without murmurs. ABDOMEN: Soft, nontender. No guarding or rebound. No masses. Left lower quadrant colostomy. BACK: No tenderness throughout entire back. EXTREMITIES: Patient has significant tenderness in the right mid-buttock and may be a slight bit swollen. However, no erythema, heat, fluctuance, etc. All other joints with normal range of motion without pain. NEUROLOGICAL: Normal speech. Normal sensory, motor, and reflex exams. Awake, alert, and oriented x3. Cranial nerves normal. SKIN: Warm, dry, no rashes. Course - Re-evaluation Re-evalutation: 07/14/17 19:12 Have spoken to [facility] and patient has been accepted for transfer there, although they do not have any beds at this time. Obtained arterial Dopplers of both lower extremities because of patient's complaint of numbness in her legs and my inability to detect pulses by touch or the nurse with Doppler. We will also get a bedside aortic ultrasound and a CT scan without any contrast to try to assess the status of the patient's aorta to the limits that we can with the patient's renal failure. 07/14/17 19:25 Reviewing the patient's chart, show she was here in March and very hypotensive after which should have been adequate fluid resuscitation. She was transferred to [facility] in [place] where she was kept for a few days and discharge. Patient does not recall them talking to her about her kidney function or anything to do about it, even though her labs here on that March visit showed her renal function to be severely impaired with a BUN of 69 and a creatinine of 2.95 and a bicarb of 7. - Vital Signs Vital signs: Temp Pulse Resp BP Pulse Ox 97.8 F 96 13 106/44 L 99 07/14/17 20:42 07/15/17 00:00 07/15/17 02:01 07/15/17 02:01 07/15/17 02:01 - Laboratory Result Diagrams: 07/14/17 16:35 07/14/17 16:35 Laboratory results interpreted by me: 07/14/17 07/14/17 07/14/17 16:35 16:35 17:10 WBC 15.5 H RBC 2.85 L Hgb 8.8 L Hct 27.2 L RDW 14.7 H Seg Neutrophils % 80.0 H Lymphocytes % 10.4 L Absolute Neutrophils 12.4 H Carbonic Acid ABG pH ABG pCO2 ABG pO2 ABG HCO3 ABG Total CO2 ABG O2 Saturation Sodium 136.8 L Potassium 5.9 H Chloride 117 H Carbon Dioxide < 5 L* BUN 101 H Creatinine 6.16 H Est GFR ( Amer) 8 L Est GFR (Non-Af Amer) 7 L AST 12 L Total Protein 5.7 L Albumin 3.4 L Urine Protein 30 H Urine Blood SMALL H 07/14/17 18:05 WBC RBC Hgb Hct RDW Seg Neutrophils % Lymphocytes % Absolute Neutrophils Carbonic Acid 0.71 L ABG pH 7.03 L* ABG pCO2 23.5 L ABG pO2 52.2 L ABG HCO3 6.1 L ABG Total CO2 6.8 L ABG O2 Saturation 70.8 L Sodium Potassium Chloride Carbon Dioxide BUN Creatinine Est GFR ( Amer) Est GFR (Non-Af Amer) AST Total Protein Albumin Urine Protein Urine Blood Discharge - Discharge Clinical Impression: Renal failure, Hypotension, Peripheral vascular disease Condition: Serious Disposition: [facility] Referrals: RATNA SANTOS DO [Primary Care Provider] - Follow up as needed
--- NOTE | 2017-07-14 20:08 | RADIOLOGY REPORT (SQ) ---
EXAM DESCRIPTION: ARTERIAL LOWER EXTREM BILAT COMPLETED DATE/TIME: 07/14/2017 7:31 pm REASON FOR STUDY: Numbness feet, toes pink, cannot feel pulses. COMPARISON: None. TECHNIQUE: Dynamic and static jamil scale and color images acquired of the lower extremity arteries. Additional selected spectral images recorded. LIMITATIONS: None. FINDINGS: RIGHT LEG: INFLOW ARTERIES: Normal, no obstruction evident. FEMORAL ARTERIES:Monophasic waveforms.. Normal, no velocity elevation to suggest focal stenosis. Norm al color Doppler evaluation. No aneurysm. POPLITEAL ARTERY:Monophasic waveforms.. Normal, no velocity elevation to suggest focal stenosis. Norm al color Doppler evaluation. No aneurysm. PATENT TIBIOPERONEAL TRUNK AND 3 VESSEL RUNOFF: Yes, normal vessels. OTHER: No other significant finding. LEFT LEG: INFLOW ARTERIES: Normal, no obstruction evident. FEMORAL ARTERIES:Monophasic waveforms.. Normal, no velocity elevation to suggest focal stenosis. Norm al color Doppler evaluation. No aneurysm. POPLITEAL ARTERY:Monophasic waveforms.. Normal, no velocity elevation to suggest focal stenosis. Norm al color Doppler evaluation. No aneurysm. PATENT TIBIOPERONEAL TRUNK AND 3 VESSEL RUNOFF: Yes, normal vessels. OTHER: No other significant finding. IMPRESSION: No evidence of lower extremity arterial occlusion. The presence of monophasic waveforms at the level of the common femoral arteries suggests aortic disease. TECHNICAL DOCUMENTATION: JOB ID: [id number] [employer]- All Rights Reserved
--- NOTE | 2017-07-14 20:13 | RADIOLOGY REPORT (SQ) ---
EXAM DESCRIPTION: CT ABD/PELVIS NO ORAL OR IV COMPLETED DATE/TIME: 07/14/2017 7:32 pm REASON FOR STUDY: Severe right hip pain, pulses absent in feet COMPARISON: 08/04/2011 TECHNIQUE: CT scan of the abdomen and pelvis performed without intravenous or oral contrast. Images reviewed with lung, soft tissue, and bone windows. Reconstructed coronal and sagittal MPR images revi ewed. All images stored on PACS. All CT scanners at this facility use dose modulation, iterative reconstruction, and/or weight based d osing when appropriate to reduce radiation dose to as low as reasonably achievable (ALARA). [facility]: Dose Right [facility]: CareDose [facility]: Dose Right [facility]: Teradose 4D [facility]: Smart Synqera RADIATION DOSE: CT Rad equipment meets quality standard of care and radiation dose reduction techniq ues were employed. CTDIvol: 6.8 mGy. DLP: 355 mGy-cm.mGy. LIMITATIONS: None. FINDINGS: LOWER CHEST: No significant findings. No nodules or infiltrates. NON-CONTRASTED LIVER, SPLEEN, ADRENALS: Evaluation limited by lack of IV contrast. No identified sign ificant masses. PANCREAS: No masses. No peripancreatic inflammatory changes. GALLBLADDER: No identified stones by CT criteria. No inflammatory changes to suggest cholecystitis. RIGHT KIDNEY AND URETER: No suspicious masses. Assessment limited by lack of IV contrast. No signif icant calcifications. No hydronephrosis or hydroureter. LEFT KIDNEY AND URETER: No suspicious masses. Assessment limited by lack of IV contrast. No signifi cant calcifications. No hydronephrosis or hydroureter. AORTA AND RETROPERITONEUM: Calcified atherosclerotic plaque is present. No aneurysm. No retroperiton eal masses or adenopathy. BOWEL AND PERITONEAL CAVITY: Re- demonstration of a right lower quadrant ileostomy which appears shana lar to that seen on 2012 CT imaging. No evidence of acute inflammatory changes or bowel obstruction. APPENDIX: Surgically absent. PELVIS, BLADDER, AND ABDOMINAL WALL:No abnormal masses. No free fluid. Bladder normal. BONES: Mild degenerative changes are seen of the hips and spine. OTHER: No other significant finding. IMPRESSION: No evidence of acute intra- abdominal infectious/ inflammatory process. Stable right lo wer quadrant ileostomy. Degenerative changes of the hips without evidence of right hip fracture. COMMENT: Quality ID # [id number]: Final reports with documentation of one or more dose reduction techniques (e.g., Automated exposure control, adjustment of the mA and/or kV according to patient size, use of iterative reconstruction technique) TECHNICAL DOCUMENTATION: JOB ID: [id number] [employer]- All Rights Reserved
--- NOTE | 2017-07-14 20:33 | RADIOLOGY REPORT (SQ) ---
EXAM DESCRIPTION: CHEST SINGLE VIEW COMPLETED DATE/TIME: 07/14/2017 7:48 pm REASON FOR STUDY: Renal failure COMPARISON: 03/29/2017 EXAM PARAMETERS: NUMBER OF VIEWS: One view. TECHNIQUE: Single frontal radiographic view of the chest acquired. RADIATION DOSE: NA LIMITATIONS: None. FINDINGS: LUNGS AND PLEURA: Biapical pleural/ parenchymal scarring and hyperaeration are not signifi cantly changed. No focal opacities, masses or pneumothorax. No pleural effusion. MEDIASTINUM AND HILAR STRUCTURES: No masses. Contour normal. HEART AND VASCULAR STRUCTURES: Mild cardiomegaly. Normal vasculature. BONES: No acute findings. HARDWARE: None in the chest. OTHER: No other significant finding. IMPRESSION: Mild cardiomegaly without evidence of vascular congestion. TECHNICAL DOCUMENTATION: JOB ID: [id number] [employer]- All Rights Reserved
--- NOTE | 2017-07-14 20:49 | RADIOLOGY REPORT (SQ) ---
EXAM DESCRIPTION: U/S ABD AORTIC SCREENING COMPLETED DATE/TIME: 07/14/2017 8:13 pm REASON FOR STUDY: Complain of numb feet, pulses absent to feet COMPARISON: None. TECHNIQUE: Static and dynamic grayscale images acquired of the aorta and stored on PACs. Selected co risa Doppler and spectral images recorded. LIMITATIONS: None. FINDINGS: AORTIC CALIBER MAXIMAL PROXIMAL: 2.0 cm. MID: 1.6 cm. DISTAL: 1.3 cm. ILIAC DIAMETER RIGHT: 1.2 cm. LEFT: 0.9 cm. OTHER: No other significant finding. IMPRESSION: NO ABDOMINAL AORTIC ANEURYSM. Please note this examination was performed as a standard abdominal aortic aneurysm screening examination and does not include color Doppler interrogation. COMMENT: Aorta screening examinations categories: Negative=less than 3 cm TECHNICAL DOCUMENTATION: JOB ID: [id number] [employer]- All Rights Reserved
--- NOTE | 2017-07-14 22:15 | EKG REPORT ---
SEVERITY:- ABNORMAL ECG - SINUS RHYTHM RIGHT ATRIAL ABNORMALITY BORDERLINE PROLONGED QT INTERVAL : Confirmed by: Verónica Love 14-Jul-2017 22:15:05
[2017-07-14] MEDS ORDERED: NORMAL SALINE 1000 ML 500 ML IV ONE (22:59)
[2017-07-15] MEDS: NORMAL SALINE 1000 ML 1,000 ML IV PRN (00:09)
[2017-07-15 02:07] VITALS: BP 106/44
== END 2017-07-15 02:48 | disposition short-term general hospital (02) ==
LOC: ER 16:28
DX: N19 Unspecified kidney failure (principal); I95.9 Hypotension, unspecified; I73.9 Peripheral vascular disease, unspecified; R41.82 Altered mental status, unspecified; M25.551 Pain in right hip; F17.200 Nicotine dependence, unspecified, uncomplicated
CPT/HCPCS: 93005; 96376; 99285; 96361; 96374; 96375; 36415; 87040; 87086; 82803; 85025; 85610; 80053; 81001; 83605; 93925; 71045; 76706; 74176; 93010; J2270; J2405; J7030 ×2

== ENCOUNTER → 2018-08-12 | Outpatient (CLI) | payer MEDICARE ==
[2018-08-12 14:00] LABS: ABSOLUTE BASOPHILS # (AUTO) 0.1 10^3/uL (0.0-0.2); ABSOLUTE EOSINOPHILS # (AUTO) 0.2 10^3/uL (0.0-0.6); ABSOLUTE LYMPHOCYTES (AUTO) 2.1 10^3/uL (0.5-4.7); ABSOLUTE MONOCYTES (AUTO) 0.7 10^3/uL (0.1-1.4); ABSOLUTE NEUT (AUTO) 3.8 10^3/uL (1.7-8.2); BASOPHILS % (AUTO) 1.2 % (0-2); EOSINOPHILS % (AUTO) 2.8 % (0-6); HEMATOCRIT 43.3 % (36.0-47.0); HEMOGLOBIN 14.8 g/dL (12.0-15.5); LYMPHOCYTES % (AUTO) 30.8 % (13-45); MEAN CORPUSCULAR HEMOGLOBIN 30.6 pg (27.0-33.4); MEAN CORPUSCULAR HGB CONC 34.1 g/dL (32.0-36.0); MEAN CORPUSCULAR VOLUME 90 fl (80-97); MONOCYTES % (AUTO) 10.7 % (3-13); PLATELET COUNT 270 10^3/uL (150-450); RED BLOOD COUNT 4.82 10^6/uL (3.72-5.28); RED CELL DISTRIBUTION WIDTH 13.8 % (11.5-14.0); SEGMENTED NEUTROPHILS % (AUTO) 54.5 % (42-78); TOTAL CELLS COUNTED % (AUTO) 100 %; WHITE BLOOD COUNT 6.9 10^3/uL (4.0-10.5)
[2018-08-12 14:22] LABS: ALBUMIN 4.3 g/dL (3.5-5.0); ANION GAP 13 (5-19); BLOOD UREA NITROGEN 17 mg/dL (7-20); CALCIUM 9.1 mg/dL (8.4-10.2); CARBON DIOXIDE 21 mmol/L (22-30); CHLORIDE 102 mmol/L (98-107); GLUCOSE 352 mg/dL (75-110); PHOSPHORUS 3.6 mg/dL (2.5-4.5); POTASSIUM 4.4 mmol/L (3.6-5.0); SODIUM 135.7 mmol/L (137-145)
[2018-08-13 12:38] LABS: CREATININE URINE 111.5 mg/dL (Not Estab.); MICROALBUMIN URINE 29.4 ug/mL (Not Estab.)
== END ==
LOC: OD 08:41
PROVIDERS: ATTEND Internal Medicine Nephrology
DX: E11.9 Type 2 diabetes mellitus without complications (principal); N17.9 Acute kidney failure, unspecified; I10 Essential (primary) hypertension
CPT/HCPCS: 36415; 80069; 82043; 82306; 82570; 83970; 85025

== ENCOUNTER 2018-09-04 10:47 | Day surgery (SDC) | payer MEDICARE ==
[2018-08-12 10:52] LABS: ABSOLUTE BASOPHILS # (AUTO) 0.1 10^3/uL (0.0-0.2); ABSOLUTE EOSINOPHILS # (AUTO) 0.2 10^3/uL (0.0-0.6); ABSOLUTE LYMPHOCYTES (AUTO) 1.9 10^3/uL (0.5-4.7); ABSOLUTE MONOCYTES (AUTO) 0.8 10^3/uL (0.1-1.4); ABSOLUTE NEUT (AUTO) 4.3 10^3/uL (1.7-8.2); BASOPHILS % (AUTO) 1.1 % (0-2); EOSINOPHILS % (AUTO) 2.5 % (0-6); HEMATOCRIT 41.6 % (36.0-47.0); HEMOGLOBIN 14.3 g/dL (12.0-15.5); LYMPHOCYTES % (AUTO) 26.8 % (13-45); MEAN CORPUSCULAR HEMOGLOBIN 30.6 pg (27.0-33.4); MEAN CORPUSCULAR HGB CONC 34.2 g/dL (32.0-36.0); MEAN CORPUSCULAR VOLUME 89 fl (80-97); MONOCYTES % (AUTO) 10.8 % (3-13); PLATELET COUNT 270 10^3/uL (150-450); RED BLOOD COUNT 4.66 10^6/uL (3.72-5.28); RED CELL DISTRIBUTION WIDTH 13.7 % (11.5-14.0); SEGMENTED NEUTROPHILS % (AUTO) 58.8 % (42-78); TOTAL CELLS COUNTED % (AUTO) 100 %; WHITE BLOOD COUNT 7.2 10^3/uL (4.0-10.5)
--- NOTE | 2018-08-12 11:03 | EKG REPORT ---
SEVERITY:- BORDERLINE ECG - SINUS RHYTHM PROBABLE LEFT ATRIAL ABNORMALITY BORDERLINE LEFT AXIS DEVIATION NONSPECIFIC T INVERSION LATERAL LEADS : Confirmed by: Dayton Younger MD 12-Aug-2018 11:02:34
[2018-08-12 11:11] LABS: ANION GAP 11 (5-19); BLOOD UREA NITROGEN 17 mg/dL (7-20); CALCIUM 9.4 mg/dL (8.4-10.2); CARBON DIOXIDE 23 mmol/L (22-30); CHLORIDE 104 mmol/L (98-107); GLUCOSE 271 mg/dL (75-110); POTASSIUM 4.4 mmol/L (3.6-5.0)
[~2018-09-04 10:47] MED LIST: DEXTROSE 5%-LACTATED RINGERS 1,000 ML IV PRN
[2018-09-04] MEDS ORDERED: ALBUTEROL SULFATE 0.083% NEB 2.5 MG/3 ML AMPUL NEB ONE (12:11)
[2018-09-04 13:29] LABS: INTERNATIONAL RATION (INR) 1.01; PROTHROMBIN TIME 13.8 SEC (11.4-15.4)
[2018-09-04 13:30] LABS: PARTIAL THROMBOPLASTIN TIME 31.3 SEC (23.5-35.8)
[2018-09-04] MEDS ORDERED: PROPOFOL INJ 200 MG/20 ML VIAL IV ONE (13:39)
[2018-09-04] MEDS ORDERED: MIDAZOLAM 2 MG/2 ML INJ ONE (13:39)
--- NOTE | 2018-09-04 14:11 | Discharge Summary ---
Discharge Summary (SDC) - Discharge Final Diagnosis: Normal rectosigmoid colon up to 25 cm Date of Surgery: 09/04/18 Discharge Date: 09/04/18 Condition: Good Treatment or Instructions: [facility] [place] [id number] POST ENDOSCOPY DISCHARGE INSTRUCTIONS 1. Diet: Start clear liquids that a regular diet as tolerated. 2. Resume all preoperative medications. All oral anticoagulants and aspirins can be resumed 24 hours after procedure. 3. If a polypectomy was performed some bleeding per rectum may occur. This should stop within 3 days. If not, please contact the office. 4. If you had a colonoscopy you may experience some bloating and delayed return of normal bowel function for several days, your regular bowel movement pattern should resume within a week. 5. Please contact [facility] at to make an appointment with Dr. Davis for 1 to 3 weeks following procedure. 6. If you have any questions or concerns regarding your care,treatment plan or follow up, please contact our office. . Referrals: RATNA SANTOS I, DO [Primary Care Provider] - Discharge Diet: Other (Comments) - start with clear liquids then progress to small bland portions. Discharge Activity: Balance Activity w/Rest, Walk Frequently Report the Following to Your Physician Immediately: Nausea, Vomiting, Increase in Pain, Fever over 101 Degrees, Unusual Bleeding, Swelling, Drainage-Foul Smelling, Large Clots
--- NOTE | 2018-09-04 14:14 | Operative Report ---
Operative Report DATE OF SURGERY: 09/04/18 PREOPERATIVE DIAGNOSIS: 1. History of colon cancer status post extended right hemicolectomy with ileostomy and Ashley's pouch. 2. History of subcutaneous emphysema status post previous surveillance sigmoidoscopy POSTOPERATIVE DIAGNOSIS: UnRemarkable rectosigmoid colon; internal hemorrhoids OPERATION: Flexible sigmoidoscopy to approximately 20 cm from the anal verge SURGEON: LILIANA DE LEÓN ANESTHESIA: LMAC TISSUE REMOVED OR ALTERED: none COMPLICATIONS: none ESTIMATED BLOOD LOSS: scant INTRAOPERATIVE FINDINGS: See below PROCEDURE: Patient was taken to the preop holding area to the main operating room where LMAC anesthesia was induced. She was left in the supine position. The hips were flexed, and surgical timeout and surgical and discussed A rectal exam was performed. There was no visible or palpable external perianal pathology. Internally there were hemorrhoids, circumferential collapse. The flexible pediatric colonoscope was advanced in the anorectal canal into the sigmoid colon. The colon appeared to stop at approximately 26 cm from the anal verge. There was no distinct staple line only absence of lumen. Because the patient's history of massive pneumoperitoneum and subcutaneous emphysema following previous sigmoidoscopy, I did not try to advance the scope any further. My impression is that he was at the terminal point of the long [place] pouch. The scope was withdrawn, checked the mucosa carefully and there is no evidence of pathology bleeding etc. This was a normal study. The scope was withdrawn from the patient's anus. She tolerated procedure well. She was taken to recovery in stable condition. Per surveillance guidelines, patient would be appropriate candidate for follow- up surveillance flexible recto-sigmoidoscopy in 3-5 years.
[2018-09-04 16:07] VITALS: BP 140/77
== END 2018-09-04 16:00 | disposition home or self-care (01) ==
LOC: OROUT 10:47
PROVIDERS: ATTEND Surgery
DX: K64.8 Other hemorrhoids (principal); Z85.038 Personal history of other malignant neoplasm of large intestine; Z93.2 Ileostomy status; I10 Essential (primary) hypertension; E11.9 Type 2 diabetes mellitus without complications; I25.2 Old myocardial infarction; I73.9 Peripheral vascular disease, unspecified; Z79.01 Long term (current) use of anticoagulants; Z86.73 Personal history of transient ischemic attack (TIA), and cerebral infarction without residual deficits; Z88.5 Allergy status to narcotic agent; Z79.899 Other long term (current) drug therapy; Z79.84 Long term (current) use of oral hypoglycemic drugs; Z01.818 Encounter for other preprocedural examination
CPT/HCPCS: 45330; 93005; 36415 ×2; 82962; 85025; 85610; 85730; 80048; 93010; J2250; J2704; A9270; 811

== ENCOUNTER → 2018-12-09 | Outpatient (CLI) | payer MEDICARE ==
[2018-12-09 18:18] LABS: ANION GAP 10 (5-19); BLOOD UREA NITROGEN 18 mg/dL (7-20); CALCIUM 9.8 mg/dL (8.4-10.2); CARBON DIOXIDE 20 mmol/L (22-30); CHLORIDE 107 mmol/L (98-107); GLUCOSE 181 mg/dL (75-110); POTASSIUM 4.9 mmol/L (3.6-5.0); SODIUM 136.9 mmol/L (137-145)
== END ==
LOC: LAB 17:38
PROVIDERS: ATTEND Internal Medicine Nephrology
DX: I12.9 Hypertensive chronic kidney disease with stage 1 through stage 4 chronic kidney disease, or unspecified chronic kidney disease (principal); N18.3 Chronic kidney disease, stage 3 (moderate); E11.22 Type 2 diabetes mellitus with diabetic chronic kidney disease
CPT/HCPCS: 36415; 80048; 83970

== ENCOUNTER → 2019-04-10 | Outpatient (CLI) | payer MEDICARE, OTHER ==
[2019-04-10 09:32] LABS: ABSOLUTE BASOPHILS # (AUTO) 0.1 10^3/uL (0.0-0.2); ABSOLUTE EOSINOPHILS # (AUTO) 0.1 10^3/uL (0.0-0.6); ABSOLUTE LYMPHOCYTES (AUTO) 1.5 10^3/uL (0.5-4.7); ABSOLUTE MONOCYTES (AUTO) 0.6 10^3/uL (0.1-1.4); ABSOLUTE NEUT (AUTO) 5.5 10^3/uL (1.7-8.2); BASOPHILS % (AUTO) 0.9 % (0-2); EOSINOPHILS % (AUTO) 1.1 % (0-6); HEMATOCRIT 41.6 % (36.0-47.0); HEMOGLOBIN 14.2 g/dL (12.0-15.5); LYMPHOCYTES % (AUTO) 19.1 % (13-45); MEAN CORPUSCULAR HEMOGLOBIN 30.6 pg (27.0-33.4); MEAN CORPUSCULAR VOLUME 90 fl (80-97); MONOCYTES % (AUTO) 7.4 % (3-13); PLATELET COUNT 363 10^3/uL (150-450); RED BLOOD COUNT 4.62 10^6/uL (3.72-5.28); RED CELL DISTRIBUTION WIDTH 12.8 % (11.5-14.0); SEGMENTED NEUTROPHILS % (AUTO) 71.5 % (42-78); TOTAL CELLS COUNTED % (AUTO) 100 %; WHITE BLOOD COUNT 7.7 10^3/uL (4.0-10.5)
[2019-04-10 10:00] LABS: ALBUMIN 3.9 g/dL (3.5-5.0); ANION GAP 10 (5-19); BLOOD UREA NITROGEN 15 mg/dL (7-20); CALCIUM 9.6 mg/dL (8.4-10.2); CARBON DIOXIDE 23 mmol/L (22-30); CHLORIDE 104 mmol/L (98-107); GLUCOSE 301 mg/dL (75-110); PHOSPHORUS 3.3 mg/dL (2.5-4.5); POTASSIUM 4.4 mmol/L (3.6-5.0)
[2019-04-10 10:15] LABS: APPEARANCE,URINE CLEAR; BILIRUBIN,URINE NEGATIVE (NEGATIVE); COLOR,URINE STRAW; GLUCOSE, URINE >=500 mg/dL (NEGATIVE); KETONES,URINE NEGATIVE (NEGATIVE); LEUKOCYTE ESTERASE,URINE NEGATIVE (NEGATIVE); NITRITE,URINE NEGATIVE (NEGATIVE); PROTEIN,URINE NEGATIVE (NEGATIVE); URINE SPECIFIC GRAVITY 1.012; UROBILINOGEN,URINE NEGATIVE mg/dL (<2.0)
[2019-04-11 11:37] LABS: CREATININE URINE 62.5 mg/dL (Not Estab.); MICROALBUMIN URINE 4.7 ug/mL (Not Estab.)
== END ==
LOC: OD 09:07
PROVIDERS: ATTEND Internal Medicine Nephrology
DX: E11.22 Type 2 diabetes mellitus with diabetic chronic kidney disease (principal); I12.9 Hypertensive chronic kidney disease with stage 1 through stage 4 chronic kidney disease, or unspecified chronic kidney disease; N18.3 Chronic kidney disease, stage 3 (moderate)
CPT/HCPCS: 36415; 80069; 81001; 82043; 82306; 82570; 83970; 85025

== ENCOUNTER 2019-06-29 09:08 | Emergency (ER) | payer MEDICARE, OTHER ==
--- NOTE | 2019-06-29 09:38 | ER Document Report ---
ED Medical Screen (RME) - General Chief Complaint: Leg Pain Stated Complaint: LEG CRAMPING Time Seen by Provider: 06/29/19 09:34 Primary Care Provider: RAFAT PALENCIA MD [Primary Care Provider] - Follow up as needed Mode of Arrival: Ambulatory Information source: Patient Notes: 63-year-old female patient presenting with bilateral leg cramping. Patient reports it was so severe she could not sleep all night. Patient does report she has had this happen in the past and states that that at that time she was significantly dehydrated. Patient does report a history of DVTs however she denies any unilateral leg swelling at this time. Exam: No obvious leg swelling or erythema noted however exam limited due to patient's clothing and location in triage I have greeted and performed a rapid initial assessment of this patient. A comprehensive ED assessment and evaluation of the patient, analysis of test results and completion of the medical decision making process will be conducted by additional ED providers. I have specifically instructed the patient or family members with the patient to immediately return to any nursing staff should anything change in the patient's condition or with their chief complaint. TRAVEL OUTSIDE OF THE [place] IN LAST 30 DAYS: No - Related Data Allergies/Adverse Reactions: meperidine [From Demerol] Allergy (Severe, Verified 06/29/19 09:22) Past Medical History - Social History Chew tobacco use (# tins/day): No Frequency of alcohol use: None Drug Abuse: None - Past Medical History Cardiac Medical History: Reports: Hx DVT - 2008; treated with short-term Coumadin Denies: Hx Atrial Fibrillation, Hx Congestive Heart Failure, Hx Heart Attack, Hx Hypercholesterolemia, Hx Hypertension Pulmonary Medical History: Reports: Hx Pneumonia Denies: Hx Asthma, Hx Bronchitis, Hx COPD Neurological Medical History: Denies: Hx Seizures Endocrine Medical History: Reports: Hx Diabetes Mellitus Type 2. Denies: Hx Diabetes Mellitus Type 1 Renal/ Medical History: Reports: Hx Renal Insufficiency. Denies: Hx Peritoneal Dialysis Malignancy Medical History: Reports: Hx Colorectal Cancer - Permanent colostomy GI Medical History: Denies: Hx Gastroesophageal Reflux Disease Musculoskeltal Medical History: Reports Hx Arthritis - Chronic back and right hip pain Psychiatric Medical History: Denies: Hx Depression Past Surgical History: Reports: Hx Abdominal Surgery - Colostomy, Hx Colostomy. Denies: Hx Hysterectomy - Immunizations Hx Diphtheria, Pertussis, Tetanus Vaccination: No Physical Exam - Vital signs Vitals: Temp Pulse Resp BP Pulse Ox 98.1 F 106 H 20 106/68 99 06/29/19 09:12 06/29/19 09:12 06/29/19 09:12 06/29/19 09:12 06/29/19 09:12 Course - Vital Signs Vital signs: Temp Pulse Resp BP Pulse Ox 98.1 F 106 H 20 106/68 99 06/29/19 09:12 06/29/19 09:12 06/29/19 09:12 06/29/19 09:12 06/29/19 09:12 Doctor's Discharge - Discharge Referrals: RAFAT PALENCIA MD [Primary Care Provider] - Follow up as needed
[2019-06-29 09:59] LABS: ABSOLUTE EOSINOPHILS # (AUTO) 0.1 10^3/uL (0.0-0.6); ABSOLUTE LYMPHOCYTES (AUTO) 1.6 10^3/uL (0.5-4.7); BASOPHILS % (AUTO) 0.5 % (0-2); TOTAL CELLS COUNTED % (AUTO) 100 %
[2019-06-29 10:08] LABS: ABSOLUTE MONOCYTES (AUTO) 1.1 10^3/uL (0.1-1.4); EOSINOPHILS % (AUTO) 0.8 % (0-6); HEMATOCRIT 50.1 % (36.0-47.0); HEMOGLOBIN 17.2 g/dL (12.0-15.5); LYMPHOCYTES % (AUTO) 18.4 % (13-45); MEAN CORPUSCULAR HGB CONC 34.3 g/dL (32.0-36.0); MEAN CORPUSCULAR VOLUME 90 fl (80-97); MONOCYTES % (AUTO) 12.4 % (3-13); PLATELET COUNT 347 10^3/uL (150-450); RED BLOOD COUNT 5.55 10^6/uL (3.72-5.28); RED CELL DISTRIBUTION WIDTH 13.4 % (11.5-14.0); SEGMENTED NEUTROPHILS % (AUTO) 67.9 % (42-78); WHITE BLOOD COUNT 8.8 10^3/uL (4.0-10.5)
[2019-06-29 10:11] LABS: APPEARANCE,URINE CLOUDY; BILIRUBIN,URINE NEGATIVE (NEGATIVE); COLOR,URINE AMBER; GLUCOSE, URINE NEGATIVE (NEGATIVE); KETONES,URINE NEGATIVE (NEGATIVE); LEUKOCYTE ESTERASE,URINE SMALL (NEGATIVE); NITRITE,URINE NEGATIVE (NEGATIVE); PROTEIN,URINE 100 mg/dL (NEGATIVE); UROBILINOGEN,URINE NEGATIVE mg/dL (<2.0)
[2019-06-29 10:17] LABS: ALBUMIN 5.3 g/dL (3.5-5.0); ALKALINE PHOSPHATASE 157 U/L (38-126); ASPARTATE AMINO TRANSFERASE 22 U/L (14-36); BILIRUBIN,DIRECT 0.4 mg/dL (0.0-0.4); BILIRUBIN,TOTAL 0.5 mg/dL (0.2-1.3); BLOOD UREA NITROGEN 36 mg/dL (7-20); CALCIUM 10.1 mg/dL (8.4-10.2); GLUCOSE 382 mg/dL (75-110); POTASSIUM 4.3 mmol/L (3.6-5.0); TOTAL PROTEIN 9.2 g/dL (6.3-8.2)
[2019-06-29 10:22] LABS: CARBON DIOXIDE 16 mmol/L (22-30); CHLORIDE 92 mmol/L (98-107)
[2019-06-29 10:23] LABS: ANION GAP 22 (5-19)
[2019-06-29] MEDS ORDERED: RINGERS SOLUTION,LACTATED 1,000 ML IV ONE ×2 (13:00→20:21)
[2019-06-29] MEDS ORDERED: NORMAL SALINE 1000 ML 1,000 ML IV ONE ×2 (13:00→20:17)
[2019-06-29 13:26] LABS: PHOSPHORUS 5.1 mg/dL (2.5-4.5)
--- NOTE | 2019-06-29 13:58 | ER Document Report ---
ED Extremity Problem, Lower - General Chief Complaint: Leg Pain Stated Complaint: LEG CRAMPING Time Seen by Provider: 06/29/19 09:34 Primary Care Provider: RAFAT PALENCIA MD [ACTIVE STAFF] - Follow up tomorrow Mode of Arrival: Ambulatory Information source: Patient Notes: 63-year-old female presents to ED for bilateral leg cramping. Patient states her leg cramps are severe at night, she states this is keeping her from sleeping. She states she has had this happen in the past when she was significantly dehydrated. She states she also has had DVTs in the past however there is no leg swelling time. She states that the cramping is not to the posterior legs but to the lateral side of one in the medial side of the leg and she does not have any swelling. TRAVEL OUTSIDE OF THE [place] IN LAST 30 DAYS: No - HPI Patient complains to provider of: Pain Location: Leg, Thigh Occurred: Other - Last several days Where: Home, Indoors Onset/Duration: Intermittent Quality of pain: Cramping Severity: Mild Pain Level: 2 Recent injury: No Associated symptoms: Painful ambulation Exacerbated by: Nothing Relieved by: Nothing - Related Data Allergies/Adverse Reactions: meperidine [From Demerol] Allergy (Severe, Verified 06/29/19 09:22) Past Medical History - General Information source: Patient - Social History Smoking Status: Current Every Day Smoker Chew tobacco use (# tins/day): No Frequency of alcohol use: None Drug Abuse: None Lives with: Family Family History: Reviewed & Not Pertinent, DM Patient has suicidal ideation: No Patient has homicidal ideation: No - Medical History Medical History: Other - cilostazol 1 tab 2 times a day will be read 4 mg 2 tabl ets twice daily daily, Januvia 100 mg daily porgabalin 50 mg 3 times a day - Past Medical History Cardiac Medical History: Reports: Hx DVT - 2008; treated with short-term Coumadin Pulmonary Medical History: Reports: Hx Pneumonia EENT Medical History: Reports: None Neurological Medical History: Reports: None Endocrine Medical History: Reports: Hx Diabetes Mellitus Type 2 Renal/ Medical History: Reports: Hx Renal Insufficiency Malignancy Medical History: Reports: Hx Colorectal Cancer - Permanent colostomy GI Medical History: Reports: None Musculoskeletal Medical History: Reports Hx Arthritis - Chronic back and right hip pain Skin Medical History: Reports None Psychiatric Medical History: Denies: Hx Depression Infectious Medical History: Reports: None Past Surgical History: Reports: Hx Abdominal Surgery - Colostomy, Hx Colostomy. Denies: Hx Hysterectomy - Immunizations Hx Diphtheria, Pertussis, Tetanus Vaccination: No Review of Systems - Review of Systems Constitutional: No symptoms reported EENT: No symptoms reported Cardiovascular: No symptoms reported Respiratory: No symptoms reported Gastrointestinal: No symptoms reported Genitourinary: No symptoms reported Female Genitourinary: No symptoms reported Musculoskeletal: Other - Leg cramps worse at night Skin: No symptoms reported Hematologic/Lymphatic: No symptoms reported Neurological/Psychological: No symptoms reported -: Yes All other systems reviewed and negative Physical Exam - Vital signs Vitals: Temp Pulse Resp BP Pulse Ox 98.1 F 106 H 20 106/68 99 06/29/19 09:12 06/29/19 09:12 06/29/19 09:12 06/29/19 09:12 06/29/19 09:12 Interpretation: Normal - General General appearance: Appears well, Alert - HEENT Head: Normocephalic, Atraumatic Eyes: Normal Pupils: PERRL - Respiratory Respiratory status: No respiratory distress Chest status: Nontender Breath sounds: Normal Chest palpation: Normal - Cardiovascular Rhythm: Regular Heart sounds: Normal auscultation Murmur: No - Abdominal Inspection: Normal Distension: No distension Bowel sounds: Normal Tenderness: Nontender Organomegaly: No organomegaly - Back Back: Normal, Nontender - Extremities General upper extremity: Normal inspection, Nontender, Normal color, Normal ROM, Normal temperature General lower extremity: Normal inspection, Nontender, Normal color, Normal ROM, Normal temperature, Normal weight bearing. No: Carlin's sign Calf: Other - States the leg cramps are to the lateral side of the right and the medial side of the left leg at night no cramping to the backs of the legs no pain to the backs of legs. - Neurological Neuro grossly intact: Yes Cognition: Normal Orientation: AAOx4 Anand Coma Scale Eye Opening: Spontaneous [place] Coma Scale Verbal: Oriented Anand Coma Scale Motor: Obeys Commands [place] Coma Scale Total: 15 Speech: Normal Motor strength normal: LUE, RUE, LLE, RLE Sensory: Normal - Psychological Associated symptoms: Normal affect, Normal mood - Skin Skin Temperature: Warm Skin Moisture: Dry Skin Color: Normal Course - Re-evaluation Re-evalutation: 06/30/19 00:[address] Small several times during the evening concerning the lab results exam and treatment that was being given. He stated she would need fluids to correct the electrolyte imbalance. After the first liter the electrolytes were rechecked and they had improved but were not corrected yet. She was given the second liter of fluids and again the labs were repeated he stated she was still need more fluids. The third liter of fluids was given. By this time Dr. Simmons was not available and Dr. Lopez was consulted. He stated she could go home and follow-up with her primary doctor tomorrow as the labs were much closer to normal and she did not need more fluids at this time. He stated that the patient would need to take the lab results with her to the appointment so that they can correct any medications that were causing her dehydration. Patient states she does not like to drink a lot during the winter when it is cold like she is supposed to drink for her medications and her illnesses. Patient was discharged home with a copy of her labs and instructions to please follow-up with the primary doctor tomorrow. Patient verbalized under standing and agreement with treatment plan and patient was discharged home. - Vital Signs Vital signs: Temp Pulse Resp BP Pulse Ox 97.9 F 106 H 22 H 119/64 97 06/29/19 23:45 06/29/19 09:12 06/29/19 23:23 06/29/19 23:23 06/29/19 23:23 - Laboratory Result Diagrams: 06/29/19 16:00 06/29/19 21:45 Laboratory results interpreted by me: 06/29/19 06/29/19 06/29/19 09:16 09:16 09:16 RBC 5.55 H Hgb 17.2 H Hct 50.1 H Plt Count Sodium 130.1 L Potassium Chloride 92 L Carbon Dioxide 16 L Anion Gap 22 H BUN 36 H Creatinine 2.54 H Est GFR ( Amer) 23 L Est GFR (MDRD) Non-Af 19 L Glucose 382 H Calcium Phosphorus Alkaline Phosphatase 157 H Total Protein 9.2 H Albumin 5.3 H Urine Protein 100 H Urine Blood MODERATE H Ur Leukocyte Esterase SMALL H 06/29/19 06/29/19 06/29/19 09:16 16:00 16:00 RBC Hgb Hct Plt Count 116 L Sodium 129.8 L Potassium Chloride Carbon Dioxide 18 L Anion Gap BUN 35 H Creatinine 1.99 H Est GFR ( Amer) 31 L Est GFR (MDRD) Non-Af 25 L Glucose 195 H Calcium Phosphorus 5.1 H Alkaline Phosphatase Total Protein Albumin Urine Protein Urine Blood Ur Leukocyte Esterase 06/29/19 06/29/19 19:15 21:45 RBC Hgb Hct Plt Count Sodium 131.5 L 134.5 L Potassium 3.4 L Chloride Carbon Dioxide 19 L Anion Gap BUN 31 H 30 H Creatinine 1.77 H 1.54 H Est GFR ( Amer) 35 L 41 L Est GFR (MDRD) Non-Af 29 L 34 L Glucose 184 H 176 H Calcium 8.3 L Phosphorus Alkaline Phosphatase Total Protein Albumin Urine Protein Urine Blood Ur Leukocyte Esterase Discharge - Discharge Clinical Impression: Leg cramps, Dehydration Condition: Stable Disposition: HOME, SELF-CARE Additional Instructions: Dehydration Dehydration can result from vomiting or diarrhea, fever, or decreased intake of fluids. If severe, hospitalization and intravenous fluids may be required. Most cases are treated at home with fluids by mouth. For the next 24 hours, drink lots of clear fluids. In mild cases, this can be soda pop or sports drinks. For more severe dehydration, the doctor may recommend special fluids such as Pedialyte or Lytren. Try to get three liters (3 quarts) of fluid per day. If vomiting occurs, continue to drink the fluids frequently (every 15 to 20 minutes), but in small amounts (one or two ounces). Depending on the type of dehydration, the doctor may prescribe antinausea medicine or potassium replacements. Call the doctor or return for re-examination if you become progressively weak, vomit repeatedly, or have other new symptoms. Leg Cramps There are many causes of leg cramps. Most of the time, there is no underlying serious medical condition. Calf muscle cramps that occur at rest or during the night are a nuisance, but are usually not caused by any serious medical problem. Leg cramps that occur during exercise (walking, stair climbing) can be caused by poor circulation. Cramping is more likely to occur if the legs swell. Over-exercise or overheating can cause muscle spasms even with good circulation. Cramp-like muscle pain can be an early symptom of blood clots in the lower leg. Sometimes cramping is due to a previous muscle injury. Occasionally cramping is a symptom of dehydration or of low levels of sodium, potassium, calcium or magnesium. When a cramp occurs, stretch gently and massage the cramped muscle. Get enough fluids, potassium, and sodium for the muscle to work normally. Avoid strenuous exercise for several days if you've been having frequent leg cramps. Medicines such a quinine may be helpful in some patients with night cramps. Call the doctor or return if you develop redness, swelling, bruising, or increased pain in the leg, or if the foot becomes cold, numb, pale, or discolored. Please drink fluids as discussed. You need to drink enough fluids to keep well- hydrated especially with the medicines you take and your diabetes. I have given you a copy of your labs please take these with you and call your doctor and get an appointment for tomorrow. You may need to discuss some of the medications you are taking and the fact that you do not drink enough fluids. FOLLOW-UP CARE: If you have been referred to a physician for follow-up care, call the physicians office for an appointment as you were instructed or within the next two days. If you experience worsening or a significant change in your symptoms, notify the physician immediately or return to the Emergency Department at any time for re-evaluation. Referrals: RAFAT PALENCIA MD [ACTIVE STAFF] - Follow up tomorrow
[2019-06-29 16:25] LABS: ABSOLUTE BASOPHILS # (AUTO) 0.1 10^3/uL (0.0-0.2); ABSOLUTE EOSINOPHILS # (AUTO) 0.2 10^3/uL (0.0-0.6); ABSOLUTE LYMPHOCYTES (AUTO) 2.9 10^3/uL (0.5-4.7); ABSOLUTE NEUT (AUTO) 4.4 10^3/uL (1.7-8.2); BASOPHILS % (AUTO) 0.7 % (0-2); EOSINOPHILS % (AUTO) 2.1 % (0-6); HEMATOCRIT 43.3 % (36.0-47.0); LYMPHOCYTES % (AUTO) 33.6 % (13-45); MEAN CORPUSCULAR HEMOGLOBIN 30.7 pg (27.0-33.4); MEAN CORPUSCULAR HGB CONC 34.3 g/dL (32.0-36.0); MEAN CORPUSCULAR VOLUME 90 fl (80-97); MONOCYTES % (AUTO) 12.2 % (3-13); RED BLOOD COUNT 4.84 10^6/uL (3.72-5.28); RED CELL DISTRIBUTION WIDTH 13.8 % (11.5-14.0); SEGMENTED NEUTROPHILS % (AUTO) 51.4 % (42-78); TOTAL CELLS COUNTED % (AUTO) 100 %; WHITE BLOOD COUNT 8.6 10^3/uL (4.0-10.5)
[2019-06-29 16:40] LABS: ANION GAP 13 (5-19); BLOOD UREA NITROGEN 35 mg/dL (7-20); CALCIUM 9.2 mg/dL (8.4-10.2); CARBON DIOXIDE 18 mmol/L (22-30); CHLORIDE 99 mmol/L (98-107); GLUCOSE 195 mg/dL (75-110); POTASSIUM 3.9 mmol/L (3.6-5.0)
[2019-06-29 16:44] LABS: HEMOGLOBIN 14.9 g/dL (12.0-15.5); PLATELET COUNT 116 10^3/uL (150-450)
[2019-06-29] MEDS ORDERED: RINGERS SOLUTION,LACTATED 1,000 ML IV PRN (16:53)
[2019-06-29 19:58] LABS: ANION GAP 13 (5-19); BLOOD UREA NITROGEN 31 mg/dL (7-20); CALCIUM 8.9 mg/dL (8.4-10.2); CARBON DIOXIDE 19 mmol/L (22-30); CHLORIDE 100 mmol/L (98-107); GLUCOSE 184 mg/dL (75-110); POTASSIUM 3.7 mmol/L (3.6-5.0)
[2019-06-29 22:13] LABS: ANION GAP 8 (5-19); BLOOD UREA NITROGEN 30 mg/dL (7-20); CALCIUM 8.3 mg/dL (8.4-10.2); CARBON DIOXIDE 22 mmol/L (22-30); CHLORIDE 105 mmol/L (98-107); GLUCOSE 176 mg/dL (75-110); POTASSIUM 3.4 mmol/L (3.6-5.0)
[2019-06-29] MEDS ORDERED: POTASSIUM CHLORIDE 10 MEQ TABLET.ER PO ONE (23:14)
[2019-06-29 23:26] VITALS: BP 119/64
== END 2019-06-29 23:46 | disposition home or self-care (01) ==
LOC: ER 09:08
DX: M79.89 Other specified soft tissue disorders (principal); E86.0 Dehydration; M79.605 Pain in left leg; M79.604 Pain in right leg; F17.200 Nicotine dependence, unspecified, uncomplicated; E11.9 Type 2 diabetes mellitus without complications; Z86.718 Personal history of other venous thrombosis and embolism; Z93.3 Colostomy status
CPT/HCPCS: 99283; 96360; 96361; 36415; 83735; 84100; 85025; 80053; 81001; J7030; J7120; A9270

== ENCOUNTER → 2019-07-02 | Outpatient (CLI) | payer MEDICARE, OTHER ==
[2019-07-02 08:58] LABS: ANION GAP 12 (5-19); BLOOD UREA NITROGEN 22 mg/dL (7-20); CALCIUM 9.8 mg/dL (8.4-10.2); CARBON DIOXIDE 19 mmol/L (22-30); CHLORIDE 104 mmol/L (98-107); GLUCOSE 241 mg/dL (75-110); PHOSPHORUS 3.1 mg/dL (2.5-4.5); POTASSIUM 4.2 mmol/L (3.6-5.0)
== END ==
LOC: OD 08:17
PROVIDERS: ATTEND Internal Medicine Nephrology
DX: N18.3 Chronic kidney disease, stage 3 (moderate) (principal)
CPT/HCPCS: 36415; 80048; 84100

== ENCOUNTER → 2019-12-12 | Outpatient (CLI) | payer MEDICARE, OTHER ==
--- NOTE | 2019-12-12 15:40 | RADIOLOGY REPORT (SQ) ---
EXAM DESCRIPTION: CT ABD/PELVIS NO ORAL OR IV IMAGES COMPLETED DATE/TIME: 12/12/2019 1:57 pm REASON FOR STUDY: N20.0 CALCULUS OF KIDNEY N20.0 CALCULUS OF KIDNEY COMPARISON: 07/14/2017 TECHNIQUE: CT scan of the abdomen and pelvis performed without intravenous or oral contrast. Images reviewed with lung, soft tissue, and bone windows. Reconstructed coronal and sagittal MPR images revi ewed. All images stored on PACS. All CT scanners at this facility use dose modulation, iterative reconstruction, and/or weight based d osing when appropriate to reduce radiation dose to as low as reasonably achievable (ALARA). [facility]: Dose Right [facility]: CareDose [facility]: Dose Right [facility]: Teradose 4D [facility]: Smart [employer] RADIATION DOSE: CT Rad equipment meets quality standard of care and radiation dose reduction techniq ues were employed. CTDIvol: 7.5 mGy. DLP: 373 mGy-cm.mGy. LIMITATIONS: None. FINDINGS: LOWER CHEST: No significant findings. No nodules or infiltrates. NON-CONTRASTED LIVER, SPLEEN, ADRENALS: Evaluation limited by lack of IV contrast. No identified sign ificant masses. PANCREAS: No masses. No peripancreatic inflammatory changes. GALLBLADDER: No identified stones by CT criteria. No inflammatory changes to suggest cholecystitis. RIGHT KIDNEY AND URETER: No suspicious masses. Assessment limited by lack of IV contrast. No signif icant calcifications. No hydronephrosis or hydroureter. LEFT KIDNEY AND URETER: No suspicious masses. Assessment limited by lack of IV contrast. Scattered intrarenal calculi. There is that 9 x 5 mm calculus at the UPJ. No significant hydronephrosis or h ydroureter. AORTA AND RETROPERITONEUM: No aneurysm. No retroperitoneal masses or adenopathy. BOWEL AND PERITONEAL CAVITY: Ostomy with parastomal hernia. No bowel obstruction. APPENDIX: Surgically absent. PELVIS, BLADDER, AND ABDOMINAL WALL:No abnormal masses. No free fluid. Bladder normal. BONES: No significant findings. OTHER: No other significant finding. IMPRESSION: 1. There is a 9 x 5 mm calculus at the left UPJ with no significant hydronephrosis. Sm aller intrarenal calculi are seen in the left kidney. 2. Ostomy with parastomal hernia. COMMENT: Quality ID # [id number]: Final reports with documentation of one or more dose reduction techniques (e.g., Automated exposure control, adjustment of the mA and/or kV according to patient size, use of iterative reconstruction technique) TECHNICAL DOCUMENTATION: JOB ID: [id number] 2010 [employer]- All Rights Reserved Reading location - IP/workstation name: [email or web address]
== END ==
LOC: RAD 13:28
PROVIDERS: ATTEND Internal Medicine Nephrology
DX: N20.0 Calculus of kidney (principal); K43.5 Parastomal hernia without obstruction or gangrene
CPT/HCPCS: 74176

== ENCOUNTER 2019-12-27 22:02 | Emergency (ER) | payer MEDICARE, OTHER ==
[2019-12-27] MEDS ORDERED: ONDANSETRON HCL INJ/PF 4 MG/2 ML SDV IV ONE (23:34)
--- NOTE | 2019-12-27 23:35 | ER Document Report ---
ED Medical Screen (RME) - General Chief Complaint: Back Pain Stated Complaint: FLANK PAIN,VOMITING Time Seen by Provider: 12/27/19 23:30 Primary Care Provider: RAFAT PALENCIA MD [Primary Care Provider] - Follow up as needed Notes: HPI: 64-year-old female with history of diabetes, colon cancer with right-sided colostomy, hypertension presenting to the emergency department for left lower back pain. Describes it as a pulling sensation but denies acute trauma. No fever. Patient did have several episodes of vomiting. Denies abdominal pain or flank pain. No fever or recent illness PHYSICAL EXAMINATION: Unable to reproduce pain in the area of the low lumbar left back on palpation, limited exam in triage but no discomfort into the left lateral abdomen upper or lower on palpation I have greeted and performed a rapid initial assessment of this patient. A comprehensive ED assessment and evaluation of the patient, analysis of test results and completion of medical decision making process will be conducted by an additional ED providers. TRAVEL OUTSIDE OF THE [place] IN LAST 30 DAYS: No - Related Data Allergies/Adverse Reactions: meperidine [From Demerol] Allergy (Severe, Verified 06/29/19 09:22) Past Medical History - Social History Chew tobacco use (# tins/day): No Frequency of alcohol use: None Drug Abuse: None - Past Medical History Cardiac Medical History: Reports: Hx DVT - 2008; treated with short-term Coumadin Denies: Hx Atrial Fibrillation, Hx Congestive Heart Failure, Hx Heart Attack, Hx Hypercholesterolemia, Hx Hypertension Pulmonary Medical History: Reports: Hx Pneumonia Denies: Hx Asthma, Hx Bronchitis, Hx COPD Neurological Medical History: Denies: Hx Seizures Endocrine Medical History: Reports: Hx Diabetes Mellitus Type 2. Denies: Hx Diabetes Mellitus Type 1 Renal/ Medical History: Reports: Hx Renal Insufficiency. Denies: Hx Peritoneal Dialysis Malignancy Medical History: Reports: Hx Colorectal Cancer - Permanent colostomy GI Medical History: Denies: Hx Gastroesophageal Reflux Disease Musculoskeltal Medical History: Reports Hx Arthritis - Chronic back and right hip pain Psychiatric Medical History: Denies: Hx Depression Past Surgical History: Reports: Hx Abdominal Surgery - Colostomy, Hx Colostomy. Denies: Hx Hysterectomy - Immunizations Hx Diphtheria, Pertussis, Tetanus Vaccination: No Physical Exam - Vital signs Vitals: Temp Pulse Resp BP Pulse Ox 98.6 F 66 20 143/67 H 98 12/27/19 23:00 07/04/20 23:00 12/27/19 23:00 12/27/19 23:00 12/27/19 23:00 Course - Vital Signs Vital signs: Temp Pulse Resp BP Pulse Ox 98.6 F 66 20 143/67 H 98 12/27/19 23:00 12/27/19 23:00 12/27/19 23:00 12/27/19 23:00 12/27/19 23:00 Doctor's Discharge - Discharge Referrals: RAFAT PALENCIA MD [Primary Care Provider] - Follow up as needed
[2019-12-27 23:51] LABS: ABSOLUTE BASOPHILS # (AUTO) 0.1 10^3/uL (0.0-0.2); ABSOLUTE MONOCYTES (AUTO) 0.8 10^3/uL (0.1-1.4); BASOPHILS % (AUTO) 0.8 % (0-2); HEMATOCRIT 42.5 % (36.0-47.0); HEMOGLOBIN 14.6 g/dL (12.0-15.5); LYMPHOCYTES % (AUTO) 7.7 % (13-45); MEAN CORPUSCULAR HEMOGLOBIN 31.2 pg (27.0-33.4); MEAN CORPUSCULAR HGB CONC 34.2 g/dL (32.0-36.0); MEAN CORPUSCULAR VOLUME 91 fl (80-97); PLATELET COUNT 283 10^3/uL (150-450); RED BLOOD COUNT 4.67 10^6/uL (3.72-5.28); RED CELL DISTRIBUTION WIDTH 12.9 % (11.5-14.0); SEGMENTED NEUTROPHILS % (AUTO) 85.5 % (42-78); TOTAL CELLS COUNTED % (AUTO) 100 %; WHITE BLOOD COUNT 12.9 10^3/uL (4.0-10.5)
[2019-12-28 00:13] LABS: ALBUMIN 4.3 g/dL (3.5-5.0); ALKALINE PHOSPHATASE 132 U/L (38-126); ANION GAP 8 (5-19); ASPARTATE AMINO TRANSFERASE 17 U/L (14-36); BILIRUBIN,TOTAL 0.6 mg/dL (0.2-1.3); BLOOD UREA NITROGEN 20 mg/dL (7-20); CALCIUM 9.5 mg/dL (8.4-10.2); CARBON DIOXIDE 22 mmol/L (22-30); CHLORIDE 102 mmol/L (98-107); GLUCOSE 319 mg/dL (75-110); POTASSIUM 4.4 mmol/L (3.6-5.0); TOTAL PROTEIN 7.3 g/dL (6.3-8.2)
[2019-12-28 00:58] LABS: APPEARANCE,URINE CLEAR; BILIRUBIN,URINE NEGATIVE (NEGATIVE); COLOR,URINE YELLOW; GLUCOSE, URINE >=500 mg/dL (NEGATIVE); KETONES,URINE TRACE mg/dL (NEGATIVE); LEUKOCYTE ESTERASE,URINE NEGATIVE (NEGATIVE); NITRITE,URINE NEGATIVE (NEGATIVE); PROTEIN,URINE 30 mg/dL (NEGATIVE); URINE SPECIFIC GRAVITY 1.028; UROBILINOGEN,URINE NEGATIVE mg/dL (<2.0)
[2019-12-28] MEDS ORDERED: MORPHINE SULFATE 10 MG/ML INJ IV PRN (01:22)
[2019-12-28] MEDS ORDERED: KETOROLAC TROMETHAMINE INJ/PF 30 MG/1 ML SDV IV ONE (01:22)
[2019-12-28 03:23] VITALS: BP 138/68
--- NOTE | 2019-12-28 05:51 | ER Document Report ---
Entered by SLIM NGUYEN SCRIBE 12/28/19 0215 Acting as scribe for:IVONNE PIZANO IV, MD ED General - General Chief Complaint: Back Pain Stated Complaint: FLANK PAIN,VOMITING Time Seen by Provider: 12/27/19 23:30 Primary Care Provider: RAFAT PALENCIA MD [Primary Care Provider] - Follow up as needed JULEE FOX MD [NO LOCAL MD] - 12/29/19 (call 12/29/2019 to schedule appointment) Mode of Arrival: Ambulatory Information source: Patient Notes: This 64 year old female patient presents to the ED today with complaints of left lower back pain that started yesterday afternoon. Patient reports a history of chronic back pain and is seen at [facility]. She states that she took x4 of her prescribed Percocet 5-325 between the hours of 1345 and 2000 yesterday. She notes nausea/vomiting, but denies fever, chills, diarrhea, dysuria, or abdominal pain. She does report a history of kidney stones years ago. She states that about x3 weeks ago, she had some hematuria and notified her leaf coverer, Dr. Palencia who sent here for a CT of the abdomen/pelvis. The read of the CT reveals that the patient has a 9 x 5 mm calculus at the left UPJ with no significant hydronephrosis. TRAVEL OUTSIDE OF THE [place] IN LAST 30 DAYS: No - Related Data Allergies/Adverse Reactions: meperidine [From Demerol] Allergy (Severe, Verified 06/29/19 09:22) Past Medical History - General Information source: Patient, [facility] Records - Social History Smoking Status: Current Every Day Smoker Cigarette use (# per day): Yes Chew tobacco use (# tins/day): No Smoking Education Provided: No Frequency of alcohol use: None Drug Abuse: None Family History: Reviewed & Not Pertinent, DM Patient has suicidal ideation: No Patient has homicidal ideation: No - Past Medical History Cardiac Medical History: Reports: Hx DVT - 2008; treated with short-term Coumadin Pulmonary Medical History: Reports: Hx Pneumonia Neurological Medical History: Endocrine Medical History: Reports: Hx Diabetes Mellitus Type 2 Renal/ Medical History: Reports: Hx Kidney Stones, Hx Renal Insufficiency Malignancy Medical History: Reports: Hx Colorectal Cancer - Permanent colostomy Musculoskeletal Medical History: Reports Hx Arthritis - Chronic back and right hip pain Past Surgical History: Reports: Hx Colostomy - Immunizations Hx Diphtheria, Pertussis, Tetanus Vaccination: No Review of Systems - Review of Systems Constitutional: See HPI. denies: Chills, Fever EENT: No symptoms reported Cardiovascular: No symptoms reported Respiratory: No symptoms reported Gastrointestinal: See HPI, Nausea, Vomiting. denies: Abdominal pain Genitourinary: See HPI, Hematuria. denies: Dysuria Female Genitourinary: No symptoms reported Musculoskeletal: See HPI, Back pain Skin: No symptoms reported Hematologic/Lymphatic: No symptoms reported Neurological/Psychological: No symptoms reported -: Yes All other systems reviewed and negative Physical Exam - Vital signs Vitals: Temp Pulse Resp BP Pulse Ox 98.6 F 66 20 143/67 H 98 12/27/19 23:00 12/27/19 23:00 12/27/19 23:00 12/27/19 23:00 12/27/19 23:00 - General General appearance: Alert In distress: None - HEENT Head: Normocephalic, Atraumatic Eyes: Normal Pupils: PERRL - Respiratory Respiratory status: No respiratory distress Chest status: Nontender Breath sounds: Normal Chest palpation: Normal - Cardiovascular Rhythm: Regular Heart sounds: Normal auscultation Murmur: No Friction rub: No Gallop: None auscultated - Abdominal Inspection: Normal, Other - No pulsatile masses or aortic bruit Distension: No distension Bowel sounds: Normal Tenderness: Nontender Organomegaly: No organomegaly - Back Back: CVA tenderness - Left CVA tenderness to percussion - Extremities General upper extremity: Normal inspection General lower extremity: Normal inspection - Neurological Neuro grossly intact: Yes Orientation: AAOx4 Anand Coma Scale Eye Opening: Spontaneous [place] Coma Scale Verbal: Oriented [place] Coma Scale Motor: Obeys Commands Anand Coma Scale Total: 15 - Psychological Associated symptoms: Normal affect, Normal mood - Skin Skin Temperature: Warm Skin Moisture: Dry Skin Color: Normal Course - Re-evaluation Re-evalutation: 12/28/19 02:46 ED MSE results discussed with patient. Also discussed with patient abdominal pelvis CT report from 12/12/2019. Explained to patient that the pain and blood in her urine is likely related to the kidney stone. Also relayed to the patient that a urologist will be offered to her for referral given the size of the stone. All questions were answered prior to discharge. A copy of the report and a copy of the images on CD were given to the patient prior to discharge. Emergency signs and symptoms, reasons to return to the emergency department discussed with patient. - Vital Signs Vital signs: Temp Pulse Resp BP Pulse Ox 98.6 F 66 20 143/67 H 98 12/27/19 23:00 12/27/19 23:00 12/27/19 23:00 12/27/19 23:00 12/27/19 23:00 - Laboratory Result Diagrams: 12/27/19 23:30 12/27/19 23:30 Laboratory results interpreted by me: 12/27/19 12/27/19 12/28/19 23:30 23:30 00:00 WBC 12.9 H Lymph % (Auto) 7.7 L Absolute Neuts (auto) 11.0 H Seg Neutrophils % 85.5 H Sodium 132.4 L Creatinine 1.45 H Est GFR ( Amer) 44 L Est GFR (MDRD) Non-Af 36 L Glucose 319 H Alkaline Phosphatase 132 H Urine Protein 30 H Urine Glucose (UA) >=500 H Urine Ketones TRACE H Urine Blood MODERATE H - Diagnostic Test Radiology reviewed: Reports reviewed Discharge - Discharge Clinical Impression: Acute left flank pain, Left ureteral stone Condition: Stable Disposition: HOME, SELF-CARE Instructions: Antinausea Medication ([facility]) Additional Instructions: Return to the Emergency Department without delay if any worse. HOME CARE INSTRUCTIONS & INFORMATION: Thank you for choosing us for your medical needs. We hope you're satisfied with the care you received. After you leave, you must properly care for your problem and, at the same time, observe its progress. Any condition can change. Some illnesses can change rapidly over hours or days. If your condition worsens, return to the Emergency Department or see your physician promptly. ABOUT YOUR X-RAYS AND EKG'S: If you had an EKG or X-rays taken, they have been read by the Emergency Physician. The X-rays and EKG's will also be read by a Radiologist or Timekeeper Supervisor within 24 hours. If discrepancies are noted, you will be notified by telephone. Please be certain the ED has a correct telephone number & address where you can be reached. Also, realize that some fractures or abnormalities do not show up on initial X-rays. If your symptoms continue, see your physician. ABOUT YOUR LABORATORY TEST: If you had laboratory tests, the results have been reviewed by the Emergency Physician. Some test results (for example cultures) may not be available for several days. You will be contacted if any test result shows you need additional treatment. Please be certain the ED has a correct telephone number and address where you can be reached. ABOUT YOUR MEDICATIONS: You will receive instructions on how to take your medicine on the prescription label you receive. Additional information may be provided by the Pharmacy. If you have questions afterwards, call the ED for clarification or further instructions. Some prescribed medications may cause drowsiness. Do not perform tasks such as driving a car or operating machinery without consulting your Pharmacist. If you feel you need a refill of pain medication, your condition will need re-evaluation. Please do not call for a refill of any medication. ABOUT YOUR SIGNATURE: Signature of this document acknowledges to followin. Understanding that you received emergency treatment and that you may be released before al medical problems are known or treated. Please be certain the ED has a correct phone number & address where you can be reached. 2. Acknowledgement that you will arrange for follow-up care as recommended. 3. Authorization for the Emergency Physician to provide information to your follow-up Physician in order to maximize your care. AT ANY TIME, IF YOUR SYMPTOMS CHANGE SIGNIFICANTLY OR WORSEN OR YOU DEVELOP NEW SYMPTOMS, RETURN TO THE EMERGENCY DEPARTMENT IMMEDIATELY FOR RE-EVALUATION. OUR GOAL IS TO PROVIDE EXCELLENT MEDICAL CARE! WE HOPE THAT WE HAVE MET YOUR EXPECTATIONS DURING YOUR EMERGENCY DEPARTMENT VISIT AND THAT YOU FEEL YOU HAVE RECEIVED EXCELLENT CARE! Kidney Stone You are passing or have passed a kidney stone. These stones are usually due to increased calcium or uric acid concentrations in your urine. Stones within the kidney itself are not painful. The pain occurs as the stone leaves the kidney to pass down the long tube, called the ureter, leading to the bladder. If the stone is small, it will usually pass by itself. Most patients can pass the stone at home. You will usually receive medications for pain, nausea or vomiting, and sometimes a medication to assist in passing the kidney stone. However, if the pain is very severe or if vomiting prevents you from taking oral pain medications, you may need to return for further treatment. Drink three or four quarts of fluids per day. You will be given pain medication (if needed) and urine strainers. Strain all your urine to see if the stone passes. If your doctor has asked you to bring the stone in for analysis, return with the stone once it has passed. Return if pain or vomiting become severe, if you develop a high fever, if you are unable to pass your urine, or if other unusual symptoms occur. Prescriptions: Ondansetron [Zofran Odt 4 mg Tablet] 1 tab PO Q8HP PRN #15 tab.rapdis PRN Reason: For Nausea/Vomiting Referrals: RAFAT PALENCIA MD [Primary Care Provider] - Follow up as needed JULEE FOX MD [NO LOCAL MD] - 12/29/19 (call 12/29/2019 to schedule appointment) I personally performed the services described in the documentation, reviewed and edited the documentation which was dictated to the scribe in my presence, and it accurately records my words and actions.
== END 2019-12-28 03:24 | disposition home or self-care (01) ==
LOC: ER 22:02
DX: N20.1 Calculus of ureter (principal); R10.9 Unspecified abdominal pain; M54.9 Dorsalgia, unspecified; R11.10 Vomiting, unspecified; F17.210 Nicotine dependence, cigarettes, uncomplicated; E11.9 Type 2 diabetes mellitus without complications; Z87.442 Personal history of urinary calculi; Z93.3 Colostomy status
CPT/HCPCS: 99283; 96374; 96375; 36415; 83690; 85025; 80053; 81001; J1885; J2270; J2405

== ENCOUNTER → 2020-01-19 | Outpatient (CLI) | payer MEDICARE, OTHER ==
--- NOTE | 2020-01-19 14:04 | RADIOLOGY REPORT (SQ) ---
EXAM DESCRIPTION: CT ABD/PELVIS NO ORAL OR IV IMAGES COMPLETED DATE/TIME: 01/19/2020 1:51 pm REASON FOR STUDY: N20.0 CALCULUS OF KIDNEY N20.0 CALCULUS OF KIDNEY N18.3 CHRONIC KIDNEY DISEASE, STAGE 3 (MODERATE) COMPARISON: 12/12/2019 TECHNIQUE: CT scan of the abdomen and pelvis performed without intravenous or oral contrast. Images reviewed with lung, soft tissue, and bone windows. Reconstructed coronal and sagittal MPR images revi ewed. All images stored on PACS. All CT scanners at this facility use dose modulation, iterative reconstruction, and/or weight based d osing when appropriate to reduce radiation dose to as low as reasonably achievable (ALARA). [facility]: Dose Right [facility]: CareDose [facility]: Dose Right [facility]: Teradose 4D [facility]: [employer] RADIATION DOSE: mGy. LIMITATIONS: None. FINDINGS: LOWER CHEST: No significant findings. No nodules or infiltrates. NON-CONTRASTED LIVER, SPLEEN, ADRENALS: Stable hepatomegaly. Spleen and adrenals are normal in appea leonides. PANCREAS: No masses. No peripancreatic inflammatory changes. GALLBLADDER: The gallbladder is contracted. RIGHT KIDNEY AND URETER: No suspicious masses. Assessment limited by lack of IV contrast. No signif icant calcifications. No hydronephrosis or hydroureter. LEFT KIDNEY AND URETER: No suspicious masses. Assessment limited by lack of IV contrast. Several sm all left renal pelvis calculi are demonstrated. There is a 2.9 mm stone in the proximal left ureter. No hydronephrosis. No perinephric stranding. AORTA AND RETROPERITONEUM: No aneurysm. No retroperitoneal masses or adenopathy. BOWEL AND PERITONEAL CAVITY: Postsurgical changes with an ostomy site in the right lower quadrant. P arastomal hernia is again noted. No obstruction. No inflammatory change. Scattered diverticuli. APPENDIX: Not visualized. Presumably absent. PELVIS, BLADDER, AND ABDOMINAL WALL:Postsurgical changes as described. BONES: No significant findings. OTHER: No other significant finding. IMPRESSION: 1. Stable hepatomegaly. 2. Small nonobstructing stones in the left renal pelvis. Nonobstructing 2.9 mm stone in the proxima l left ureter. No hydronephrosis or perinephric stranding. 3. Ostomy site in the right lower quadrant with parastomal hernia unchanged from prior study. COMMENT: Quality ID # 436: Final reports with documentation of one or more dose reduction techniques (e.g., Automated exposure control, adjustment of the mA and/or kV according to patient size, use of iterative reconstruction technique) TECHNICAL DOCUMENTATION: JOB ID: [id number] 2010 [employer]- All Rights Reserved Reading location - IP/workstation name: [email or web address]-
== END ==
LOC: RAD 13:42
PROVIDERS: ATTEND Internal Medicine Nephrology
DX: N20.0 Calculus of kidney (principal); N20.1 Calculus of ureter
CPT/HCPCS: 74176

== ENCOUNTER → 2020-03-03 | Outpatient (CLI) | payer MEDICARE ==
--- NOTE | 2020-03-03 15:12 | RADIOLOGY REPORT (SQ) ---
EXAM DESCRIPTION: CT ABD/PELVIS NO ORAL OR IV IMAGES COMPLETED DATE/TIME: 03/03/2020 2:48 pm REASON FOR STUDY: N13.30 UNSPECIFIED HYDRONEPHROSIS N20.0 CALCULUS OF KIDNEY N13.30 UNSPECIFIED HY DRONEPHROSIS COMPARISON: CT of the abdomen and pelvis without contrast from 01/19/2020. TECHNIQUE: CT scan of the abdomen and pelvis performed without intravenous or oral contrast. Images reviewed with lung, soft tissue, and bone windows. Reconstructed coronal and sagittal MPR images revi ewed. All images stored on PACS. All CT scanners at this facility use dose modulation, iterative reconstruction, and/or weight based d osing when appropriate to reduce radiation dose to as low as reasonably achievable (ALARA). [facility]: Dose Right [facility]: CareDose [facility]: Dose Right [facility]: Teradose 4D [facility]: [employer] RADIATION DOSE: CT Rad equipment meets quality standard of care and radiation dose reduction techniq ues were employed. CTDIvol: 7.6 mGy. DLP: 358 mGy-cm. LIMITATIONS: None. FINDINGS: LOWER CHEST: No acute findings. NON-CONTRASTED LIVER, SPLEEN, ADRENALS: Evaluation is limited due to the absence of intravenous contr ast. Stable hepatomegaly and low attenuation of the hepatic parenchyma. There is no splenomegaly or adrenal mass. PANCREAS: No acute gross abnormality of the pancreas. GALLBLADDER: No abnormality that is apparent on CT. RIGHT KIDNEY AND URETER: Evaluation is limited due to the absence of intravenous contrast. There is no hydronephrosis, nephrolithiasis, hydroureter or ureterolithiasis. LEFT KIDNEY AND URETER: Evaluation is limited due to the absence of intravenous contrast. The calci fications in the lower pole of the kidney (image 31 of series 2) are unchanged. The previously descr ibed calculus in the proximal left ureter is no longer present. There is no ureterolithiasis, hydron ephrosis or hydroureter. AORTA AND RETROPERITONEUM: No aneurysm of the abdominal aorta. No retroperitoneal adenopathy, hemorr jorge or mass. BOWEL AND PERITONEAL CAVITY: Stable postoperative findings in the left lower quadrant consistent with prior bowel resection and anastomosis, right lower quadrant ostomy and parastomal hernia. There is no bowel obstruction, bowel wall thickening or pericolonic/ perienteric inflammation. There is no me senteric adenopathy, free intraperitoneal fluid or mesenteric/ omental inflammation. APPENDIX: Unable to identify the appendix. PELVIS, BLADDER, AND ABDOMINAL WALL:No abnormality of the uterus or adnexa that is apparent on CT. T he urinary bladder is contracted. There is no urinary bladder calculus. BONES: No acute findings. OTHER: Colonic diverticulosis. IMPRESSION: No acute intra-abdominal abnormality. The previously described calculus in the proximal left ureter is no longer present. There is no ureterolithiasis, hydronephrosis or hydroureter. Othe r chronic findings as detailed above. COMMENT: Quality ID # 436: Final reports with documentation of one or more dose reduction techniques (e.g., Automated exposure control, adjustment of the mA and/or kV according to patient size, use of iterative reconstruction technique) TECHNICAL DOCUMENTATION: JOB ID: [id number] 2010 [employer]- All Rights Reserved Reading location - IP/workstation name: [email or web address]
== END ==
LOC: RAD 14:47
PROVIDERS: ATTEND Urology
DX: N13.30 Unspecified hydronephrosis (principal); N20.0 Calculus of kidney; N20.1 Calculus of ureter; N23 Unspecified renal colic
CPT/HCPCS: 74176